=== PATIENT | male | born 1955 | race Caucasian/White ===

== ENCOUNTER 2024-07-25 08:03 | Day surgery (SDC) | payer MEDICARE, OTHER, SELFPAY ==
[2024-07-25] VITALS (19 sets, daily range): BP systolic 94–136; BP diastolic 47–90; BMI 39.2
[2024-07-25] MEDS: LOW STRENGTH ASPIRIN 81 MG PO (09:36)
[2024-07-25 09:41] LABS: Glucose - Point of Care 103 mg/dl (70-99)
[2024-07-25] MEDS: NSS 351 ML IV (09:46)
--- NOTE | 2024-07-25 12:06 | PTCARENOTE ---
1123: CT PA at bedside to speak with patient; son at bedside Pt corie all well.
1157: 2ml air removed from R radial band. Puncture site began bleedin and 2ml air immediately replaced. bleeding controlled. pt corie all well.
--- NOTE | 2024-07-25 14:52 | ITS.CL.CATH ---
Addendum entered and electronically signed by Marcus Mckeon MD 07/25/24 16:02:
Date of procedure: July 25, 2024
Original Note:
[facility] Coordinator - Catheterization
Cardiac Catheterization
Procedure Report:
LEFT HEART CATHETERIZATION
Date of Procedure: July
Procedures performed:
1: Coronary angiography
2: Left ventricular hemodynamic assessment
Primary Care Physician: JORDAN Gilbert
Primary Acquisitions Assistant: Dr. Anatoliy Mishra
INDICATION: The patient is a 68-year-old man with a past medical history significant for diabetes, hypertension hyperlipidemia who presents with progressive exertional angina. Echocardiography performed on July 10 showed normal LV systolic
function with moderate aortic stenosis and mild aortic regurgitation. The mean gradient was 33 mmHg across the aortic valve with a valve area by continuity equation of 1.1 cm�. Nuclear perfusion imaging was high risk with anterior and inferior
ischemia.
ACCESS: The patient was prepped and draped in usual sterile fashion. A 6 Martiniquais sheath was placed in the right radial artery using the Seldinger over the wire technique.
HEMODYNAMIC FINDINGS (mmHg):
LV(s/d,EDP): 157/12, 19
Ao(s/d,m): 127/60, 88
Aortic valve on pullback mean gradient: 30 mmHg
Aortic valve on pullback peak to peak gradient: 33 mmHg
ANGIOGRAPHIC FINDINGS:
Single-plane Left Ventriculography in GARIBAY Projection: Not done
Coronary Angiography:
Dominance: Right
Left Main: Normal
Left Anterior Descending: The left anterior descending artery is a medium to large caliber vessel that has moderate calcification with diffuse 50% proximal stenosis involving the takeoff of a high first diagonal branch that has moderate ostial
disease with normal distal flow and appears to be a reasonable surgical target. Just beyond this the LAD tapers to a 80% stenosis just before the takeoff of a large second diagonal branch. The mid and distal LAD has moderate luminal irregularities
but appears to be a reasonable surgical target. The second diagonal branch is a large-caliber vessel that is a good surgical target.
Left Circumflex: The left circumflex is a very small diminutive system that gives rise to a tiny diffusely diseased obtuse marginal branch. Although there is normal distal flow this is too small caliber and diseased to be treated with
revascularization.
Right Coronary: The right coronary artery is a medium caliber dominant vessel that is diffusely diseased throughout the AV groove with a long area of diffuse 30 to 60% proximal disease. The distal vessel gives rise to a small caliber dual PDA
system that has moderate mid disease in the larger of the 2 branches. There is a small to medium caliber right posterior left ventricular branch that is open with moderate disease and normal flow.
Fluoroscopy Time (min): 2.9
Radiation Dose (mGy): 439
DAP (Gy.cm2): 28
Closure device: None. A TR band was applied for hemostasis at the right wrist.
Complications: None.
ASSESSMENT:
1: Multivessel coronary disease involving the LAD and major diagonal branch as described above.
2: Moderate aortic stenosis.
CONCLUSIONS and RECOMMENDATIONS:
1: CT surgical evaluation for CABG and bioprosthetic AVR. I feel that surgical revascularization with definitive treatment of his aortic valve disease is the wisest option in this 68-year-old diabetic. It is not clear to me that the first diagonal
and distal RCA need grafts however I will discuss this with Dr. Addi Cerda from CT surgery who will be seeing the patient.
2: Continue medical therapy with close clinical follow-up.
Marcus Mckeon M.D.
Copy to: JORDAN Gilbert
== END 2024-07-25 15:20 | disposition home or self-care (01) ==
LOC: CATH 08:03
PROVIDERS: ATTENDING PHYSICIAN Internal Medicine Interventional Cardiology; CONSULT PHYSICIAN Thoracic Surgery (Cardiothoracic Vascular Surgery); PRIMARYCARE PHYSICIAN Nurse Practitioner; REFERRING PHYSICIAN Internal Medicine
DX: I25.118 Atherosclerotic heart disease of native coronary artery with other forms of angina pectoris (principal); I35.0 Nonrheumatic aortic (valve) stenosis; I10 Essential (primary) hypertension; E78.5 Hyperlipidemia, unspecified; E11.9 Type 2 diabetes mellitus without complications; Z87.891 Personal history of nicotine dependence; Z79.84 Long term (current) use of oral hypoglycemic drugs; Z79.4 Long term (current) use of insulin; Z79.85 Long-term (current) use of injectable non-insulin antidiabetic drugs; Z79.82 Long term (current) use of aspirin
CPT/HCPCS: 82962; 93458; C1894; Q9967

== ENCOUNTER → 2024-08-22 09:05 | Outpatient (REF) | payer MEDICARE, OTHER, SELFPAY | LOC: RAD 09:05 | PROVIDERS: ATTENDING PHYSICIAN Thoracic Surgery (Cardiothoracic Vascular Surgery); FAMILY PHYSICIAN Nurse Practitioner Acute Care | DX: Z01.810 Encounter for preprocedural cardiovascular examination (principal); I35.0 Nonrheumatic aortic (valve) stenosis; I25.10 Atherosclerotic heart disease of native coronary artery without angina pectoris | CPT/HCPCS: 75572; Q9967 ==

== ENCOUNTER 2024-08-29 04:40 | Inpatient (IN) | payer MEDICARE, OTHER, SELFPAY ==
[2024-08-24 08:08] VITALS: BMI 37.8
[2024-08-24 08:53] LABS: % Basophils 0.9 % (0-2); % Eosinophils 6.8 % (0-6); % Immature Granulocytes 0.2 % (0-0.5); % Lymphocytes 22.6 % (20.5-51.1); % Monocytes 9.6 % (1.7-9.3); % Neutrophils 59.9 % (42.2-75.2); Absolute Basophils 0.1 10^3/uL (0-0.2); Absolute Eosinophils 0.7 10^3/uL (0-0.7); Absolute Lymphocytes 2.4 10^3/uL (1.2-3.4); Absolute Neutrophils 6.4 10^3/uL (1.4-6.5); Hematocrit 42.3 % (39.0-52.0); Hemoglobin 13.7 g/dL (13.0-18.0); Mean Corp Hgb Conc. 32.4 g/dL (33.0-37.0); Mean Corpuscular Hgb 29.3 pg (27.0-31.0); Mean Corpuscular Volume 90.6 fL (80.0-94.0); Mean Platelet Volume 8.6 fL (7.4-10.4); Nucleated Red Blood Cells % 0 % (-); Platelet Count 292 10^3/uL (130-400); Red Blood Cell Count 4.67 10^6/uL (4.70-6.10); Red Cell Dist. Width 12.7 % (11.5-14.5); White Blood Cell Count 10.7 10^3/uL (4.8-10.8)
[2024-08-24 09:02] LABS: INR 1.04; PT 13.9 Sec (11.4-14.6)
[2024-08-24 09:03] LABS: APTT 28.4 Sec (23.4-35.0)
[2024-08-24 09:14] LABS: ALT (SGPT) 30 U/L (0-50); AST (SGOT) 25 U/L (17-59); Albumin 4.3 g/dl (3.5-5.0); Alkaline Phosphatase 73 U/L (38-126); Blood Urea Nitrogen 19 mg/dl (9-20); Calcium 8.9 mg/dl (8.4-10.2); Carbon Dioxide 32 mmol/L (22-30); Chloride 101 mmol/L (98-107); Estimated Creatinine Clearance 111 ml/min; Glucose 82 mg/dl (70-99); Potassium 5.2 mmol/L (3.5-5.1); Sodium 140 mmol/L (135-145); Total Bilirubin 0.7 mg/dl (0.2-1.3); Total Protein 7.1 g/dl (6.3-8.2); eGFR > 60.00
[2024-08-24 09:17] LABS: Urine Albumin Negative (Neg - Trace); Urine Bilirubin Negative (Negative); Urine Character Clear (Clear); Urine Color Yellow; Urine Glucose Negative (Negative); Urine Ketone Negative (Negative); Urine Leukocyte Negative (Negative); Urine Nitrite Negative (Negative); Urine Occult Blood Negative (Negative); Urine Urobilinogen Negative (Neg - 1+)
--- NOTE | 2024-08-24 11:03 | CM ---
Met with and Mrs. Welsh in [facility]'s. He states prior to admission he resides with his spouse. He states he offered him his one story home with one step to stay in for his recovery. The address is [address] [place] [address]. He states
prior to admission he was independent with ambulation and adls. He stats he has a walker and bedside commode at home. He states the house he will be staying in has an easy lift chair. He states his 30 year old son will be staying with him. He
states he has a prescription plan and uses [facility]. We reviewed VNA services with them. He is agreeable to VNA Services. [facility] can provide services in the [facility]. The discharge plan is to go jourdan with his son and
[facility] Services when medically stable.
We reviewed pre-op and post-op routines. We reviewed the shower instructions. He has the soap, written instructions and the Cardiothoracic Surgery Educational Booklet. We also reviewed the restrictions including sternal precautions and driving
restrictions. We reviewed VNA Services and he is agreeable to VNA Services. The plan is for AVR/CABG on Tuesday08/29/24.
[2024-08-24 12:14] LABS: Glycohemoglobin (HgbA1c) 6.4 % (4.0-5.6)
[2024-08-29] VITALS (11 sets, daily range): BP systolic 75–149; BP diastolic 50–92; BMI 36.2
--- NOTE | 2024-08-29 05:00 | PTCARENOTE ---
pt admitted into room 2260. VS and weight obtained. pt confirms 2 showers @ home and NPO since midnight. admission questions and med rec completed. clip prep and CHG cloth bath done. ABO drawn and sent. ordered pre-op meds given. all questions
answered.
[2024-08-29] MEDS: BACTROBAN 2% OINTMENT 1 APPLIC NASAL ×2 (06:09→17:03)
[2024-08-29] MEDS: LOPRESSOR 25 MG PO (06:09)
[2024-08-29] MEDS: PROTONIX 40 MG PO (06:10)
[2024-08-29] MEDS: MAGNESIUM OXIDE 500 MG PO (06:10)
--- NOTE | 2024-08-29 06:27 | W.CVOR.SURPR ---
CVOR Surgeon Immed Pre Op
-
I have examined this patient prior to performance of the scheduled procedure.
The patient's condition is unchanged from the time of the dictated/written History and
Physical and the patient is able to undergo the scheduled procedure.
CABG AVR Clip
[2024-08-29 07:32] LABS: ACT+ - POC 118 Seconds (82-134)
[2024-08-29 08:03] LABS: Urine Albumin Trace (Neg - Trace); Urine Bilirubin Negative (Negative); Urine Character Clear (Clear); Urine Color Yellow; Urine Glucose Negative (Negative); Urine Ketone Trace (Negative); Urine Leukocyte Negative (Negative); Urine Nitrite Negative (Negative); Urine Occult Blood Negative (Negative); Urine Urobilinogen Negative (Neg - 1+)
--- NOTE | 2024-08-29 08:14 | CM ---
Reviewed chart. Mr. Welsh is in the operating room today. Prior to admission he resides with his spouse. His friend has offered his one story home to stey in for his recovery. Prior to admission he was independent with ambulation and adls. He has
a walker and bedside commode. The home where he will be staying has an easy lift chair. His 30 year old son will be staying with him. He has a prescription plan and uses [facility] He is agreeable to [facility] Services. [facility]. Medical work-up in progress. The discharge plan is to go to his friends home with his son satying wih him and [facility] when medically stable.
[2024-08-29 09:38] LABS: ACT+ - POC 629 Seconds (82-134)
[2024-08-29 09:58] LABS: B.E. - POC 0.9 mmol/L; Glucose - POC 77 mg/dl (70-99); HCO3 - POC 27 mmol/L (21-28); Hematocrit - POC 40 % PCV (42-52); Hemodilution- POC No; Hemoglobin Calculated - POC 13.7; Ionized Calcium - POC 1.18 mmol/L (1.15-1.33); O2 Saturation %Calculated-POC 97.6 % (94-98); PCO2 - POC 47 mmHg (35-48); PO2 - POC 102 mmHg (83-108); POC Comment PRE; Potassium - POC 4.1 mmol/L (3.5-5.1); Sodium - POC 141 mmol/L (136-145); Specimen Type - POC Arterial; pH - POC 7.36 (7.35-7.45)
[2024-08-29 10:07] LABS: B.E. - POC 2.5 mmol/L; Glucose - POC 87 mg/dl (70-99); HCO3 - POC 26 mmol/L (21-28); Hematocrit - POC 34 % PCV (42-52); Hemodilution- POC Yes; Hemoglobin Calculated - POC 11.5; Ionized Calcium - POC 0.92 mmol/L (1.15-1.33); Lactate - POC 1.19 mmol/L (0.36-0.75); O2 Saturation %Calculated-POC 99.9 % (94-98); PCO2 - POC 36 mmHg (35-48); PO2 - POC 306 mmHg (83-108); POC Comment CPB; Potassium - POC 5.5 mmol/L (3.5-5.1); Sodium - POC 133 mmol/L (136-145); Specimen Type - POC Arterial; pH - POC 7.47 (7.35-7.45)
[2024-08-29 10:13] LABS: ACT+ - POC 621 Seconds (82-134)
[2024-08-29 10:35] LABS: B.E. - POC 4.2 mmol/L; Glucose - POC 94 mg/dl (70-99); HCO3 - POC 28 mmol/L (21-28); Hematocrit - POC 36 % PCV (42-52); Hemodilution- POC Yes; Hemoglobin Calculated - POC 12.1; O2 Saturation %Calculated-POC 99.9 % (94-98); PCO2 - POC 40 mmHg (35-48); PO2 - POC 333 mmHg (83-108); POC Comment CPB; Potassium - POC 5.8 mmol/L (3.5-5.1); Sodium - POC 137 mmol/L (136-145); Specimen Type - POC Arterial; pH - POC 7.46 (7.35-7.45)
[2024-08-29 10:46] LABS: ACT+ - POC 545 Seconds (82-134)
[2024-08-29 10:59] LABS: B.E. - POC 2.7 mmol/L; Glucose - POC 115 mg/dl (70-99); HCO3 - POC 28 mmol/L (21-28); Hematocrit - POC 34 % PCV (42-52); Hemodilution- POC Yes; Hemoglobin Calculated - POC 11.7; Ionized Calcium - POC 1.04 mmol/L (1.15-1.33); O2 Saturation %Calculated-POC 99.9 % (94-98); PCO2 - POC 47 mmHg (35-48); PO2 - POC 319 mmHg (83-108); POC Comment CPB; Potassium - POC 6.4 mmol/L (3.5-5.1); Sodium - POC 137 mmol/L (136-145); Specimen Type - POC Arterial; pH - POC 7.39 (7.35-7.45)
[2024-08-29 11:39] LABS: ACT+ - POC 546 Seconds (82-134)
[2024-08-29 11:48] LABS: B.E. - POC 1.5 mmol/L; Glucose - POC 126 mg/dl (70-99); HCO3 - POC 27 mmol/L (21-28); Hematocrit - POC 36 % PCV (42-52); Hemodilution- POC Yes; Hemoglobin Calculated - POC 12.3; Ionized Calcium - POC 1.07 mmol/L (1.15-1.33); Lactate - POC 1.49 mmol/L (0.36-0.75); O2 Saturation %Calculated-POC 99.9 % (94-98); PCO2 - POC 45 mmHg (35-48); PO2 - POC 283 mmHg (83-108); Potassium - POC 5.9 mmol/L (3.5-5.1); Sodium - POC 136 mmol/L (136-145); Specimen Type - POC Arterial; pH - POC 7.39 (7.35-7.45)
[2024-08-29] MEDS: ANCEF 10 IV ×2 (11:55→14:42)
[2024-08-29 12:02] LABS: B.E. - POC 1.2 mmol/L; Glucose - POC 123 mg/dl (70-99); HCO3 - POC 27 mmol/L (21-28); Hematocrit - POC 36 % PCV (42-52); Hemodilution- POC Yes; Hemoglobin Calculated - POC 12.4; Ionized Calcium - POC 1.07 mmol/L (1.15-1.33); O2 Saturation %Calculated-POC 99.9 % (94-98); PCO2 - POC 44 mmHg (35-48); PO2 - POC 332 mmHg (83-108); POC Comment CPB; Potassium - POC 6.2 mmol/L (3.5-5.1); Sodium - POC 138 mmol/L (136-145); Specimen Type - POC Arterial; pH - POC 7.39 (7.35-7.45)
[2024-08-29 12:33] LABS: B.E. - POC -1.1 mmol/L; Glucose - POC 107 mg/dl (70-99); HCO3 - POC 24 mmol/L (21-28); Hematocrit - POC 33 % PCV (42-52); Hemodilution- POC Yes; Hemoglobin Calculated - POC 11.2; Ionized Calcium - POC 1.25 mmol/L (1.15-1.33); PCO2 - POC 43 mmHg (35-48); PO2 - POC 448 mmHg (83-108); POC Comment POST; Sodium - POC 142 mmol/L (136-145); Specimen Type - POC Arterial; pH - POC 7.36 (7.35-7.45)
--- NOTE | 2024-08-29 12:46 | PTCARENOTE ---
received patient sedated from CVOR. placed on vent by BEAUTY OPERATOR. Out with usual lines, CTx3 (placed to -20 wall suction) draining red. no air leaks/crepitus noted. #8 ETT @23 lip. lungs diminished at bases. manning draining clear yellow urine. pulses
palpable. trace edema. ekg and cxr done at bedside. Labs drawn and sent and all lines zeroed and calibrated. insulin per glycemic protocol infusing as well as precedex and levo. All surgical sites stable. Will continue to monitor.
--- NOTE | 2024-08-29 12:51 | W.PN.CT.SURG ---
CT Surgery Operative Note
-
CARDIAC SURGERY OPERATIVE REPORT
Preoperative Diagnosis: Aortic valve stenosis with multivessel coronary artery disease and exertional angina
Postoperative Diagnosis: Same
Procedure(s) Performed:
1. Sternotomy with aortic and right atrial cannulation
2. Coronary artery bypass grafting x 4 (In situ GARZA to LAD, Ao to RSVG to D1 seq to D2, Ao to RSVG to RPDA)
3. Surgical aortic valve replacement [27 mm bioprosthesis]
4. Left atrial appendage exclusion [35 mm clip]
5. Endoscopic harvest of conduit, right lower extremity [vein]
6. Placement temporary ventricular pacing wires
7. Trans-esophageal echocardiography
8. Regional block from anesthesia
Date of Surgery: 08/29/2024
Comorbidities:
1. Exertional angina
2. Diabetes
3. Multivessel coronary disease
4. Moderately severe aortic valve stenosis
5. Morbidly obese with a BMI of 36
6. Tobacco abuse
7. Family history for cardiovascular disease
8. Hypertension
9. Hyperlipidemia
Attending Surgeon: Roberto Carlos Cerda MD, MS
Assistants: Roberto Carlos Mcbride PA-C (present and necessary to medical office assistant, endoscopic vein harvest, retraction, suction, exposure, suture management, and wound closure under my direction)
Anesthesiology: Jabari Ortega MD and Fitz Ayala CRNA
Scrub and Circulating RNs: Yoon Knight RN, Nely Dennis RN
Generator Operator Straight Bevel Gear: Santos Galaviz CCP
Anesthesia: GETA
EBL: per perfusion records
Products: None
CPB Time: 128 minutes
Aortic Cross Clamp Time: 117 minutes
Indication(s) for Procedures: This is a 68-year-old male who had been experiencing exertional angina in the form of shortness of breath. He was found to have multivessel coronary artery disease as well as moderately severe aortic valve stenosis.
We discussed surgical revascularization with can, aortic valve surgery given it was a 2A indication. His chads Vascor was elevated at 3 and so because of this I plan to manage his left atrial appendage at time of surgery. His STS risk was reviewed
in the office plan was for CABG x 3-4+ AVR plus JUSTEN clip.
Aortic Valve Description: Heavily calcified mostly towards the right and on coronary cusp, the left was also involved but not as badly, left and right coronary ostium within normal anatomic positions and high.
Conduit(s) Quality:
GARZA -skeletonized/excellent size conduit with good flow
RSVG -excellent/good quality graft with minimal varicosities, some thickening and evidence of chronic inflammatory disease
Target(s) Quality:
RCA/PDA -this was a dual RPDA system, the most lateral branch was quite small and heavily diseased distally and so it was not grafted, the best of the 2 branches was grafted/good mean flow, flow probe assessment demonstrated a flow of approximately
20 to 25 cc a minute at a low pulsatility index
D1 and D2-excellent size/mean flow of approximately 80 cc a minute at a pressure of 80 mmHg, low pulsatility index these were sequentially grafted and tested individually
LAD -excellent/good quality LAD, good visual flow in the LAD territory with pinking up of the apical and lateral segments, mean flow in the 20s with low pulsatility index
Findings: LVEF on intraoperative SIOBHAN was 60-65% and 60-65% post procedure with no new regional wall motion abnormalities, all grafts were tested using the flow probe device and found to have acceptable mean flows with low pulsatility indices. There
was no prosthetic PVL or AI. Mean gradient across the prosthesis was 6 mmHg. The aortic valve was replaced using a total of 17 nonpledgeted 2 Ethibond sutures placed in the LVOT through annulus through sewing cuff of a 27 mm bioprosthetic valve
secured with core knots. The GARZA was harvested in a skeletonized fashion. Following bypass grafting, test dose cardioplegia was given down each distal and confirmed patency and hemostasis. At the conclusion of the case, he was in a very slow
junctional rhythm, we started to pace him at which point he came back into his ewiiaapaayp sinus rhythm in the 80s. He did not require any blood products, did not require any inotropic support. There was mild left ventricular hypertrophy. The left
atrial appendage was free of any thrombus or debris preoperatively and found to be totally occlusive with no residual flow postoperatively
Specimen(s): Aortic valve leaflets.
Prosthesis:
1. Medtronic 27 mm Avalus Ultra AVR, serial number: [id number]
2. 35 mm left atrial appendage clip, serial #[id number]
Description of Procedure: The patient was taken to the operating room. Their identity and procedure to be performed were verified and they were positioned supine on the operating table. Induction via general anesthesia with endotracheal intubation
was performed and central venous access and arterial monitoring were inserted. A preoperative transesophageal echocardiogram was performed. The patient was then prepped and draped from chin to feet in a sterile fashion. A preoperative time-out was
performed with all members of the team present. A midline chest incision was performed along with median sternotomy. Simultaneous endoscopic access of the right lower extremity for saphenous vein harvest was obtained along with administration of an
initial 5,000 units of IV heparin. A RulTract sternal retractor was positioned to exposure the left internal mammary bed. The mammary was harvested in a skeletonized fashion and found to have good flow. A medium clip was applied to the distal end of
the mammary after dividing it. It was wrapped in a papaverine soaked RayTec and replaced back into the left hemithorax. The RulTract was exchanged for a median sternal retractor. The innominate vein was isolated. Full heparinization was given (a
total of 50,000 units). I created a pericardial well. The aortic cannulation site was chosen where it was soft, pliable, and free of calcium. Cannulation was performed with an arterial cannula in the ascending aorta and a triple-stage venous cannula
through the right atrial appendage. The arterial cannula line had an appropriate bounce and correlating pressures with test dosing. Next, a root vent/antegrade cannula was inserted into the ascending aorta. The ACT was confirmed to be over 400 and
retrograde autologous priming was performed before commencing cardiopulmonary bypass. The pulmonary artery was away from the aorta to facilitate a clamp site. The aortic cross-clamp was placed after decreasing the flow on the bypass and
mean arterial pressure. A total of 1.0L initial dose of antegrade Del-Nido cardioplegia solution was given and planned for re-dosing every 75 minutes as necessary. There was rapid electro-mechanical arrest of the heart at 500 cc of cardioplegia. The
left ventricle was observed for distention on echocardiogram and manual palpation. Cold slush was placed into a sponge and topically on the RV while we systemically cooled to 34 degrees centigrade. Once the heart was fully arrested, it is rotated
medially and the left atrial appendage was managed with a 35 mm device after dividing the ligament of Luis.
Since the heart was already positioned with exposure to the diagonal branches, the D1 diagonal branch was dissected free from the intermuscular course and of the ventricle. Next I identified the D2 branch and dissected in a similar fashion. Both
coronary arteries were opened and enlarged with Vilchis scissors. The vein was beveled accordingly and the D1 end-to-side anastomosis was created with 7-0 Prolene. Test dosing of cardioplegia was given down the graft to verify hemostasis and also
flow and found to be excellent. Next the vein was laid out in order to accommodate a sequential graft to the D2 segment into the aorta. A small venotomy was created on the underbelly of the vein graft and enlarged with Vilchis scissors. A
jrso-we-jpik anastomosis was created with 7-0 Prolene in a running fashion. The distal end of the vein graft was then clamped off with the bulldog clamp and then cardioplegia was again given down the graft to assess flow into the D2 segment and for
hemostasis. Both were found to be excellent. I positioned the heart to expose the distal right coronary at the posterior descending artery. A [place]ma[place]luak blade was used to expose the coronary and perform the arteriotomy. Coronary Vilchis scissors were
used to enlarge the incision. The saphenous vein was trimmed and beveled to an appropriate size. The distal anastomosis was performed using 7-0 prolene in an end-to-side fashion. Antegrade cardioplegia was administered into the graft. Appropriate
hemostasis and flow were confirmed. The graft was measured for length to the aorta and cut. A suitable target on the mid/distal left anterior descending was identified. We dissected and prepared the distal target in a similar fashion. We retrieved
the GARZA from the chest and created a pericardial opening while being cognizant of the phrenic nerve to facilitate the course of the mammary. The distal end of the mammary was prepped and beveled to size. We verified orientation and length of the
MAX and found brisk flow. An end-to-side anastomosis was created with a 7-0 prolene. We temporarily released the bulldog clamp on the mammary to inspect flow. Perfusion to the LAD territory was visualized and hemostasis was confirmed. The bull clamp
was replaced on the mammary. Additional cardioplegia was given down the vein grafts as part of the testing as well as to redosed mid case.
Carbon dioxide was used to flood the field. I turned my attention to the aortic valve and manually identified the location of the right coronary take off. An aortotomy was made approximately 1.5cm above the sinotubular junction. The location of both
left and right coronary vessels were visualized in the root. The aortic valve was inspected and found to be heavily calcified. The leaflets were excised and sent for pathological assessment. The annulus was debrided of any calcium. The root and left
ventricular outflow tract were thoroughly irrigated to remove any debris. A total of 17, non-pledgeted 2-0 ethibond annular sutures were placed [id number] circumferentially. These were brought through the sewing cuff of the prosthetic valve which
as then parachuted into place. The left and right coronary ostia were visualized and were unobstructed by the valve. A Cor-Knot device was used to secure the annular sutures. The valve was inspected and was well seated. The aortotomy was
approximated with 4-0 prolene in two layers. The heart was filled and the root was distended with antegrade cardioplegia to make final assessment of graft length and orientation. I created 2 aortotomies using a #11 blade then a 4.0mm aortic punch
above the aortic suture line. The proximal anastomoses were created in an end-to-side fashion using 6-0 prolene. At the same time, we started to re-warm to 36.5 degrees centigrade. The bulldog clamp was removed from the mammary and temporary bipolar
ventricular pacing wires were placed on the base of the right ventricle. The patient was placed in a Trendelenburg position and flows on bypass were lowered. The aortic cross clamp was removed and flows were slowly brought back up. The aortotomy
appeared hemostatic. A 30-gauge needle was used to de-air the vein grafts. All bypass grafts were inspected and were free from kinking or twisting. The distal and proximal anastomoses appeared hemostatic. De-airing maneuvers were performed.
Transesophageal echocardiography revealed no paravalvular leak and appropriate prosthetic function. Once de-airing was satisfactory, the left ventricular and root vents were removed. After verifying acceptable parameters, we initiated weaning from
cardiopulmonary bypass. Once we were off cardiopulmonary bypass, the venous cannulas was clamped and removed. A test dose of protamine was administered and the patient was monitored for any adverse reaction before resuming protamine. Once half of
the protamine dose was delivered, pump suckers were turned off and the systolic blood pressure was lowered for aortic decannulation. The aortic cannula was removed and pursestrings were tied down. All cannulation sites were oversewn with a 4-0
prolene. The aortic line, proximal, and distal coronary anastomoses were hemostatic. The mammary bed was inspected and hemostasis was confirmed. Once the mediastinum was hemostatic, a 19Fr Kei drain was placed in the left pleural cavity and two
24Fr Kei drains were placed within the pericardium. Because he had a very prominent xiphoid, it would place too much pressure on the skin and fascial incision, and so this was removed. The sternum was approximated with 4#7 single and 3 #8 double
stainless steel wires. Fascia was approximated with #1 vicryl suture. The subcutaneous, dermis and epidermis were closed in layers in a running fashion. The skin wound was cleansed and dressed.
All instrument, sponge, and needle counts were confirmed to be correct x 2 at the end of the operation. The patient was transferred to the cardiac intensive care unit in critical but stable condition.
I, Dr. Roberto Carlos Cerda, was present, scrubbed for, and performed all critical elements of this procedure.
Roberto Carlos Cerda MD, MS
Cardiothoracic Surgeon
[facility]
This operative dictation was created using the enrich-in dictation system. Please excuse any grammatical, typographical, or 'sound alike' errors
--- NOTE | 2024-08-29 13:04 | W.PN.UPDATE ---
Update Note
Progress Note Update
68-year-old male was electively admitted for AVR and CABG due to nonrheumatic aortic stenosis and two-vessel coronary disease
IV fluids: 1200
U.O.:� 600
Blood:� none
Wires:� bipolar V-wire
Gtts: Cardene, Levo, Precedex, Insulin
�
NEURO: sedated on Precedex, pupils +2mm B/L
RESP: #8OT @24cm> 500/40%/14/5. Lungs clear B/L. 2 mediastinal (0cc on arrival) and L pleural (0cc on arrival) chest tubes to -20cm suction. Sanguineous drainage
CV: RRR +S1, S2, no S3, no�rub, no murmur. Dermabond to median sternotomy. RIJ w/Jbphh locked @ 47cm. PA 34/21; CVP 17
ABD: obese, ound, soft, no BS
EXT: no edema, +2/4 DP pulses B/L, no femoral bruit, LLE NICKI wrap intact; left radial A-line intact
: Harper with clear yellow urine
�
A/P: POD #0 s/p x CABG x 4 (GARZA to LAD, Ao to RSVG to D1 seq to D2, Ao to RSVG to RPDA), aortic valve replacement [#27 mm bioprosthesis], left atrial appendage exclusion [#35 mm clip]
SIOBHAN: EF�
- wean and extubate
- will need instruction regarding antibiotic prophylaxis for dental and invasive procedures
#CAD
-will require ASA/Plavix, high intensity statin, beta sydni
�
# acute surgical blood loss anemia-expected
- trend CBC
# T2DM (A1C 6.4)
- insulin infusion x 48h
- resume lantus/metformin + ACEi as BP tolerates
# Hypothyroidism
- resume levothyroxine when tolerating solids
�
# Hx neuropathy with history of back surgery
- resume�home gabapentin 300 mg twice daily +600 mg at bedtime
[2024-08-29 13:13] LABS: Glucose - Point of Care 104 mg/dl (70-99)
[2024-08-29 13:26] LABS: Hematocrit 33.5 % (39.0-52.0); Hemoglobin 11.7 g/dL (13.0-18.0); Platelet Count 184 10^3/uL (130-400)
--- NOTE | 2024-08-29 13:28 | CON.INTV ---
Consultation
Consultation Request
Date/Time Consultation Requested: 08/29/2024-1:30 PM
Date/Time Consultation Performed: 08/29/2024-1:30 PM
Requesting Provider: Cardiovascular surgery
Performing Provider: Dr. Galvan
Reason for Consultation: Postoperative ventilator/critical care management
Medical History
-
Chief Complaint: CAD
History of Present Illness:
68-year-old obese former smoking male who quit in 2010 with underlying hypertension, hyperlipidemia and diabetes found to have significant multivessel CAD and underwent CABG-production team manager consulted for postoperative ventilator/critical care management
08/29/2024. Patient is intubated and seen postoperatively in the cardiovascular intensive care unit and review of systems was unobtainable. Operative records were reviewed, chest tube output and catheter parameters were reviewed in addition to
pressor requirements.
Past Medical History
Past Medical History: None (Hypertension. Hyperlipidemia. CAD/multivessel CAD-CABG 08/29/2024. Obesity. Diabetes. Hernia.)
Social History
Tobacco: Former Smoker (1 pack/day-quit 2010)
Alcohol: None
Drug: None
Personal:
Living: With Family
Occupational Exposures: No known asbestos exposure
Environmental Exposures: No known tuberculosis exposure
Family History
Family History: Other (Father-CAD. Mother-CAD. Child-epilepsy. 1 sister from cancer.)
Allergies / Home Medications
Allergies
Allergy/AdvReac Type Severity Reaction Status Date / Time
No Known Allergies Allergy Verified 08/29/24 04:54
Home Medications
�Medication �Instructions �Recorded �Confirmed �Last Taken �Type
albuterol sulfate 90 mcg/actuation 2 puff inhalation Q6H PRN 07/25/24 08/29/24 02/13/24 History
aerosol inhaler dyspnea/wheezing
aspirin 81 mg chewable tablet 81 mg PO DAILY 07/25/24 08/29/24 08/28/24 09:00 History
atorvastatin 80 mg tablet 80 mg PO HS 07/25/24 08/29/24 08/28/24 21:00 History
gabapentin 300 mg capsule 300 mg PO BID@0800,1200 07/25/24 08/29/24 08/28/24 12:00 History
gabapentin 600 mg tablet 600 mg PO HS 07/25/24 08/29/24 08/28/24 21:00 History
insulin glargine 100 unit/mL (3 41 unit SC HS 07/25/24 08/29/24 08/28/24 21:00 History
mL) subcutaneous pen (Lantus
Solostar U-100 Insulin)
isosorbide mononitrate 60 mg 60 mg PO HS 07/25/24 08/29/24 08/23/24 21:00 History
tablet,extended release 24 hr
levothyroxine 100 mcg capsule 100 mcg PO HS 07/25/24 08/29/24 08/28/24 21:00 History
lisinopril 10 mg tablet 10 mg PO HS 07/25/24 08/29/24 08/23/24 21:00 History
metformin 1,000 mg tablet 1,000 mg PO BID 07/25/24 08/29/24 08/28/24 21:00 History
metoprolol succinate 100 mg 100 mg PO HS 07/25/24 08/29/24 07/24/24 22:00 History
tablet,extended release 24 hr
nitroglycerin 0.4 mg sublingual 0.4 mg sublingual Q5M PRN chest 07/25/24 08/29/24 08/23/24 History
tablet (Nitrostat) pain
prednisone 1 mg tablet 1 mg PO HS 07/25/24 08/29/24 08/23/24 21:00 History
semaglutide 2 mg/dose (8 mg/3 mL) 1 mg SC QWEEK 07/25/24 08/29/24 08/14/24 History
subcutaneous pen injector
Review of Systems
-
Unable to Obtain full review of systems at this time due to: Other (Per HPI)
Vitals / Labs / Diagnostic Testing
Vital Signs
Temp Pulse Resp BP Pulse Ox
96.8 F L 73 17 149/68 99
08/29/24 13:00 08/29/24 06:09 08/29/24 04:52 08/29/24 06:09 08/29/24 04:52
Diagnostic Testing:
Physical Exam
-
Exam:
Well-nourished and well-developed in no apparent distress
HEENT-atraumatic, normocephalic, oral tracheal intubation
Heart-regular rate and rhythm-no murmurs, rubs or gallops
Chest-clear to auscultation, no wheezes, crackles, median sternotomy bandage is not removed
Abdomen soft nondistended
Extremities-no cyanosis, clubbing, edema and good peripheral pulses
Integument-intact, no rashes, lesions or ecchymosis
Neurologically not alert, not oriented, not moving any of his extremities sedated on a ventilator
Assessment
-
68-year-old obese former smoking male who quit in 2010 with underlying hypertension, hyperlipidemia and diabetes found to have significant multivessel CAD and underwent CABG-production team manager consulted for postoperative ventilator/critical care management
08/29/2024.
Multivessel CAD with preoperative preserved EF
Status post CABG x 4-GARZA-LAD, AO to RSVG to D1 sequential to D2, AO to RSVG to RPDA, aortic valve replacement 27 mm bioprosthetic-Dr. Cerda 08/29/2024
Mild anemia-hemoglobin 11.7
Conditions present prior to admission:
Hypertension.
Hyperlipidemia.
CAD/multivessel-CABG/AVR 08/29/2024.
Obesity.
Diabetes.
Hernia.
Plan
Ventilator settings reviewed
FiO2 will be weaned
Minute ventilation will be adjusted
Arterial blood gases will be monitored
Spontaneous breathing trial will be attempted with hopeful extubation after anesthesia/sedation wear off
Pulmonary artery catheter parameters will be followed
Pressors/antihypertensive/inotropes/diuretics will be provided as needed
Monitor chest tube output
Monitor hemoglobin
Monitor platelet count and coags
Transfuse blood product if needed
CT surgery following chest tubes
Monitor blood sugar
Insulin drip per protocol
Aspiration precautions
VAP prevention protocol
DVT prophylaxis
Early nutrition
Early mobilization
Patient at significant risk for obstructive sleep apnea-recommend outpatient sleep [id number] leave instructions
Critical care statement: A total of 55 minutes of critical care time was provided for this patient today. This includes management of ventilator, spontaneous breathing trial, arterial blood gases, pressors, of unstable vital signs, evaluation of the
patient at bedside, reviewing the patient's pertinent medical records including radiographs, microbiology, laboratory evaluations, and discussion with primary team and critical care nursing.
Diagnostic data:
Chest x-ray 08/29/2024-ET tube and pulmonary artery catheter in position, low lung volumes
CT chest 08/22/2024-dense aortic calcification, mild bronchial wall thickening suggesting bronchitis, basilar atelectasis
Cardiac catheterization 07/25/2024-multivessel CAD and moderate aortic stenosis
Data Reviewed
-
EKG: Report reviewed by me
Radiology: Image personally visualized and interpreted and Report reviewed by me
CT Scan: Report reviewed by me
Medical Tests (Nuc Med, Echo etc): Report reviewed by me
Labs: Labs reviewed by me
Old Records: Reviewed
Critical Care Time (in minutes): 55
[2024-08-29 13:30] LABS: B.E. -1.4 mmol/L; HCO3 24.3 mmol/L (21-28); Ionized Calcium 1.18 mMOL/L (1.15-1.33); O2 Saturation % 99.1 % (94-98); PCO2 44 mmHg (35-48); PO2 156 mmHg (83-108); Potassium 4.5 mMOL/L (3.5-5.1); Sodium 135 mMOL/L (136-145); pH 7.35 (7.35-7.45)
[2024-08-29 13:31] LABS: PT 17.7 Sec (11.4-14.6)
[2024-08-29 13:32] LABS: APTT 33.3 Sec (23.4-35.0); Mixed Venous O2 Saturation 72.5 %
[2024-08-29 13:45] LABS: Blood Urea Nitrogen 19 mg/dl (9-20); Estimated Creatinine Clearance 124 ml/min; Glucose 107 mg/dl (70-99); Magnesium 2.5 mg/dl (1.6-2.3)
--- NOTE | 2024-08-29 14:16 | W.PN.CARDCBS ---
Addendum entered and electronically signed by Dakota Dowell MD 08/29/24 15:18:
patient seen and examined
agree with NANETTE Marlow's notes and assessment
agree with NANETTE Marlow's plan
intubated and sedated in the ICU
s/p AVR/CABG/JUSTEN clip POD#0
exam:
intubated
sedated
sternum cdi
cor regular no m
lungs diminished but clear
abd soft nt nd
no ext edema
Assessment:
s/p CABG x4 In situ GARZA to LAD, Ao to RSVG to D1 seq to D2, Ao to RSVG to RPDA, bioprosthetic AVR, JUSTEN clip 08/29/24
MV CAD by cath
Mod
Chronic RBBB
DM2
HTN
HLD
Obesity
Tobacco use
ECHO 07/10/24: Normal LV systolic function, moderate , mild AR with mean gradient 33 mmHg, EBONY 1.1 cm�
Plan:
-s/p CABG x4 In situ GARZA to LAD, Ao to RSVG to D1 seq to D2, Ao to RSVG to RPDA, bioprosthetic AVR, JUSTEN clip 08/29/24
-intubated, sedated
-off pressors. CI 1.74
-post op EKG SR with RBBB, stable
-hgb 11.7
-Preop was on regimen of Toprol 100 mg nightly, lisinopril 10 mg nightly, Imdur 60 mg nightly.
-continue usual post op care
-d/w nursing
-appreciate excellent surgical care
Original Note:
Today's Communication / Plan
-
continue post op care
Impression / Plan
-
Primary Wrapper Operator: Dr. Mishra of [facility]
Assessment:
s/p CABG x4 In situ GARZA to LAD, Ao to RSVG to D1 seq to D2, Ao to RSVG to RPDA, bioprosthetic AVR, JUSTEN clip 08/29/24
MV CAD by cath
Mod
Chronic RBBB
DM2
HTN
HLD
Obesity
Tobacco use
ECHO 07/10/24: Normal LV systolic function, moderate , mild AR with mean gradient 33 mmHg, EBONY 1.1 cm�
Plan:
-s/p CABG x4 In situ GARZA to LAD, Ao to RSVG to D1 seq to D2, Ao to RSVG to RPDA, bioprosthetic AVR, JUSTEN clip 08/29/24
-intubated, sedated
-off pressors. CI 1.74
-post op EKG SR with RBBB
-hgb 11.7
-Preop was on regimen of Toprol 100 mg nightly, lisinopril 10 mg nightly, Imdur 60 mg nightly.
-continue post op care
-d/w nursing
Progress Note - Wrapper Operator
Subjective
Date of Service: August 29, 2024
intubated, sedated
Objective
Labs:
08/29/24 13:04
Labs
Hgb 11.7 g/dL (13.0-18.0) L 08/29/24 13:04
Hct 33.5 % (39.0-52.0) L 08/29/24 13:04
Plt Count 184 10^3/uL (130-400) D 08/29/24 13:04
PT 17.7 Sec (11.4-14.6) H 08/29/24 13:04
INR 1.40 08/29/24 13:04
APTT 33.3 Sec (23.4-35.0) 08/29/24 13:04
Sodium 140 mmol/L (135-145) 08/24/24 08:17
Potassium 5.2 mmol/L (3.5-5.1) H 08/24/24 08:17
BUN 19 mg/dl (9-20) 08/29/24 13:04
Creatinine 0.7 mg/dL (0.7-1.3) 08/29/24 13:04
Glucose 107 mg/dl (70-99) H 08/29/24 13:04
Vital Signs and I&O:
Vital Signs
Temp Pulse Resp BP Pulse Ox
96.8 F L 86 14 149/68 94
08/29/24 13:00 08/29/24 13:45 08/29/24 13:45 08/29/24 06:09 08/29/24 14:05
Vital Signs
Temp Pulse Resp BP Pulse Ox
96.8 F L 86 14 149/68 94
08/29/24 13:00 08/29/24 13:45 08/29/24 13:45 08/29/24 06:09 08/29/24 14:05
Intake & Output
08/27/24 08/28/24 08/29/24 08/30/24
07:59 07:59 07:59 07:59
Intake Total 98.0 / 98.0
Output Total 430 / 430
Balance -332.0 / -332.0
Physical Exam
Physical Exam
GEN: No distress, intubated, sedated
HEENT: supple, mmm
LUNGS: CTA B/L, no wheezes
CV: Reg, S1/S2, no murmur
ABD: soft, BS+, NT/ND
EXT: No cyanosis, clubbing, edema
NEURO: sedated
SKIN: Warm, pink, dry. No rash. Sternotomy incision c/d/i. CTs in place.
[2024-08-29 14:18] LABS: Glucose - Point of Care 98 mg/dl (70-99)
[2024-08-29] MEDS: NOVOLOG FLEXPEN SC ×2 (14:32→16:18)
[2024-08-29] MEDS: NSS 500 IV (14:32)
[2024-08-29] MEDS: CALCIUM GLUCONATE 100 IV (14:34)
[2024-08-29] MEDS: TYLENOL PO (14:37)
[2024-08-29] MEDS: NEURONTIN PO (14:37)
[2024-08-29 15:15] LABS: Glucose - Point of Care 102 mg/dl (70-99)
--- NOTE | 2024-08-29 15:45 | PTCARENOTE ---
placed on cpap wean by GRAPHIC TECHNICIAN.
[2024-08-29] MEDS: DILAUDID 0.25 MG IV (15:53)
[2024-08-29] MEDS: PACERONE PO (15:54)
[2024-08-29 16:24] LABS: Glucose - Point of Care 78 mg/dl (70-99)
[2024-08-29 16:28] LABS: B.E. -0.4 mmol/L; HCO3 24.8 mmol/L (21-28); Ionized Calcium 1.25 mMOL/L (1.15-1.33); O2 Saturation % 99.2 % (94-98); PCO2 42 mmHg (35-48); PO2 113 mmHg (83-108); Potassium 4.4 mMOL/L (3.5-5.1); pH 7.38 (7.35-7.45)
[2024-08-29 16:31] LABS: Hematocrit 35.4 % (39.0-52.0); Platelet Count 178 10^3/uL (130-400)
--- NOTE | 2024-08-29 16:40 | PTCARENOTE ---
extubated to 6L nc @ 1640 with SHIFT COMMANDER at bedside.
--- NOTE | 2024-08-29 16:43 | RESPNOTE ---
Respiratory: patient was extubated without incident, no stridor. SpO2 94% on 6 LPM nasal cannula.
[2024-08-29] MEDS: DILAUDID 0.5 MG IV ×2 (16:56→23:25)
[2024-08-29] MEDS: LR 250 ML IV (17:04)
[2024-08-29 18:33] LABS: Glucose - Point of Care 132 mg/dl (70-99)
[2024-08-29 20:44] LABS: Glucose - Point of Care 89 mg/dl (70-99)
[2024-08-29] MEDS: LOW STRENGTH ASPIRIN 81 MG PO (20:48)
[2024-08-29] MEDS: ANCEF 5 IV (20:49)
[2024-08-29] MEDS: SENOKOT-S 1 TABLET PO (20:49)
[2024-08-29] MEDS: LIPITOR 80 MG PO (21:53)
[2024-08-29] MEDS: PACERONE 200 MG PO (21:53)
[2024-08-29] MEDS: NEURONTIN 600 MG PO (21:58)
[2024-08-29] MEDS: SYNTHROID 100 MCG PO (21:58)
[2024-08-29] MEDS: DELTASONE 1 MG PO (21:58)
[2024-08-29] MEDS: TYLENOL 1000 MG PO (21:59)
[2024-08-29 22:44] LABS: Glucose - Point of Care 88 mg/dl (70-99)
--- NOTE | 2024-08-29 23:00 | PTCARENOTE ---
report received from previous RN, walking rounds done. pt in bed, AAOx4. pt c/po sternal incision pain. see MAR for PRN expert medical writer. SR on monitor, HR 90s. B/L radial and DP pulses palpable. heart tones clear. RIJ cordis + swan intact w KVOs infusing.
CI > 2. PAPs 30s/20s. CVP ~12.left radial art line intact. Levo infusing @ 2mcg. SBP 100s-110s. epicardial wires intact and off. B/L breath sounds present. POX 98% on 4LNC. CT x3 intact to -20 cm wall suction, drainage WNL, no air leak present. IS
encouraged. hypoactive bowel sounds present. ABD soft, nontender. Insulin gtt infusing per glycemic protocol. pt tolerating ice and sips of water with meds. manning catheter intact, draining CYU, UO adequate. PIV x2 intact and patent. all surgical
sites stable. see worklist for full assessment, VS, and interventions. pt resting comfortably.
[2024-08-29] MEDS: ZOFRAN 4 MG IV (23:25)
[2024-08-30] VITALS (43 sets, daily range): BP systolic 76–135; BP diastolic 45–99; PULSE 90; O2SAT 94–95; BMI 36.9
[2024-08-30 00:10] LABS: Glucose - Point of Care 99 mg/dl (70-99)
[2024-08-30 03:06] LABS: Glucose - Point of Care 102 mg/dl (70-99)
[2024-08-30 04:05] LABS: Blood Urea Nitrogen 25 mg/dl (9-20); Calcium 8.5 mg/dl (8.4-10.2); Carbon Dioxide 26 mmol/L (22-30); Chloride 101 mmol/L (98-107); Estimated Creatinine Clearance 108 ml/min; Glucose 107 mg/dl (70-99); Magnesium 2.1 mg/dl (1.6-2.3); Potassium 4.6 mmol/L (3.5-5.1); Sodium 136 mmol/L (135-145); eGFR > 60.00
[2024-08-30 04:10] LABS: Hematocrit 33.3 % (39.0-52.0); Hemoglobin 11.1 g/dL (13.0-18.0); Mean Corp Hgb Conc. 33.3 g/dL (33.0-37.0); Mean Corpuscular Hgb 29.8 pg (27.0-31.0); Mean Corpuscular Volume 89.3 fL (80.0-94.0); Mean Platelet Volume 9.2 fL (7.4-10.4); Platelet Count 217 10^3/uL (130-400); Red Blood Cell Count 3.73 10^6/uL (4.70-6.10); Red Cell Dist. Width 12.8 % (11.5-14.5); White Blood Cell Count 21.3 10^3/uL (4.8-10.8)
[2024-08-30] MEDS: ANCEF 5 IV ×2 (04:17→13:29)
[2024-08-30] MEDS: ROXICODONE 5 MG PO ×4 (04:17→20:17)
[2024-08-30] MEDS: DILAUDID 0.5 MG IV (04:17)
[2024-08-30 04:25] LABS: Glucose - Point of Care 97 mg/dl (70-99)
--- NOTE | 2024-08-30 04:30 | PTCARENOTE ---
pt VSS, no acute changes. SR 90s. CI >2. SBP 110s on 2mcg Levo gtt. POX 96% on 2LNC. CT output and UO WNL. all surgical sites stable. Insulin gtt maintained per protocol. AM labs drawn and sent. EKG done. pt resting between care.
[2024-08-30 05:45] LABS: Glucose - Point of Care 93 mg/dl (70-99)
[2024-08-30] MEDS: TYLENOL 1000 MG PO ×3 (05:45→22:22)
--- NOTE | 2024-08-30 05:52 | W.PN.CT ---
Today's Communication / Plan
-
-pod #1
-no significant issues overnight
-CI 2.20, CO 4.85, SVR 956. Drips: insulin
-CT output: 2 meds 110/240, L pleur 25/80 in 12/24 hrs
-deline
-continue insulin
-d/c Harper
-current meds (ASA, Plavix, Lipitor, Lopressor, Amio, Protonix)
-encourage IS, OOB
Assessment / Plan
-
- CAD/ symptomatic AV stenosis - s/p x CABG x 4 (GARZA to LAD, Ao to RSVG to D1 seq to D2, Ao to RSVG to RPDA), aortic valve replacement [#27 mm bioprosthesis], left atrial appendage exclusion [#35 mm clip] on 08/29/[address] Cerda, pod #1
- Intraop SIOBHAN: LVEF was 60-65% pre and post procedure with no new regional wma. There was no prosthetic PVL or AI. Mean gradient across the prosthesis was 6 mmHg. The left atrial appendage was free of any thrombus or debris preoperatively and found
to be totally occlusive with no residual flow postoperatively
- Exertional angina
- Diabetes II
- Multivessel coronary disease
- Moderately severe aortic valve stenosis
- Class 2 obesity with a BMI of 36
- Tobacco abuse, quit 2010
- Family history for cardiovascular disease
- Hypertension
- Hyperlipidemia
- Acute postop blood loss anemia - stable, no transfusion
- Acute postop atelectasis
- Acute postop hypovolemia with subsequent hypervolemia
Discussed patient care with: Nursing and Care Team
Subjective
Procedure
s/p x CABG x 4 (GARZA to LAD, Ao to RSVG to D1 seq to D2, Ao to RSVG to RPDA), aortic valve replacement [#27 mm bioprosthesis], left atrial appendage exclusion [#35 mm clip] on 08/29/[address] Cerda
-
Date of Service: August 30, 2024
Objective Data
-
PT 17.7 Sec (11.4-14.6) H 08/29/24 13:04
INR 1.40 08/29/24 13:04
APTT 33.3 Sec (23.4-35.0) 08/29/24 13:04
Vital Signs
Vital Signs
Temp Pulse Resp BP Pulse Ox
98.3 F 92 15 124/71 97
08/30/24 01:00 08/30/24 01:00 08/30/24 01:00 08/30/24 01:00 08/30/24 01:00
CT Intake/Output/Weight
08/29/24 08/29/24 08/30/24
06:59 18:59 06:59
Intake Total 339.1 / 640.1 301.0 / 640.1
Output Total 965 / 1310 345 / 1310
Balance -625.9 / -669.9 -44.0 / -669.9
SaO2: 97
Physical Exam
-
General: Awake and AOx3
Cardiovascular: Regular rate & rhythm, No Murmurs and No Rub
Respiratory: Decreased Breath Sounds
Sternum: Stable
Incision: Clean, Dry and Intact
Extremities: No Edema (2+DPs b/l)
Abdomen: soft, nontender, +decreased bowel sounds
Data Reviewed
-
Lab Results: Results Reviewed
Medications: Active Meds Reviewed
Chest X-Ray: Report Reviewed and Image Reviewed
ECG: Report Reviewed and Image Reviewed
--- NOTE | 2024-08-30 06:00 | PTCARENOTE ---
Levo gtt off. RIJ swan and left radial art line d/c'd per orders. manning d/c'd. pt attempted OOB to chair, pt became very dizzy and lightheaded. pt assisted back to bed. VSS.
[2024-08-30] MEDS: PROTONIX 40 MG PO (07:41)
[2024-08-30] MEDS: NEURONTIN 300 MG PO ×2 (07:41→12:47)
[2024-08-30] MEDS: PACERONE 200 MG PO ×3 (07:41→22:21)
[2024-08-30] MEDS: LOW STRENGTH ASPIRIN 81 MG PO (07:41)
[2024-08-30] MEDS: MAGNESIUM OXIDE 500 MG PO ×2 (07:41→20:17)
[2024-08-30] MEDS: PLAVIX 75 MG PO (07:42)
[2024-08-30] MEDS: SENOKOT-S 1 TABLET PO ×2 (07:42→20:17)
[2024-08-30] MEDS: LIDOCAINE 4% PATCH 1 PATCH TOPICAL (07:42)
--- NOTE | 2024-08-30 07:45 | W.PN.INTV ---
Today's Communication / Plan
Recommendations
Tolerated extubation
Begin to deline
Pressors weaned
Monitor chest tube output
Insulin drip continues
Increase activity
Continues ICU level of care
Outpatient sleep apnea evaluation
Assessment
-
68-year-old obese former smoking male who quit in 2010 with underlying hypertension, hyperlipidemia and diabetes found to have significant multivessel CAD and underwent CABG-tax economist consulted for postoperative ventilator/critical care management
08/29/2024.
Multivessel CAD with preoperative preserved EF
Status post CABG x 4-GARZA-LAD, AO to RSVG to D1 sequential to D2, AO to RSVG to RPDA, aortic valve replacement 27 mm bioprosthetic-Dr. Cerda 08/29/2024
Mild anemia-hemoglobin 11.7
Conditions present prior to admission:
Hypertension.
Hyperlipidemia.
CAD/multivessel-CABG/AVR 08/29/2024.
Obesity.
Diabetes.
Hernia.
Plan
Tolerated extubation
Wean FiO2
Encourage incentive spirometry
Increase activity
Aspiration precautions
Pulmonary artery catheter and arterial line will be removed
Pressors have been weaned
Continue to monitor chest tube output
Follow hemoglobin
Continue to follow platelet count and coags
Transfuse blood product as needed
CT surgery following chest tubes as well
Follow blood sugar
Insulin supplementation continues as needed
Early nutrition
Early mobilization
DVT prophylaxis
Patient at significant risk for obstructive sleep apnea-recommend outpatient sleep [id number] leave instructions
Critical care statement: A total of 35 minutes of critical care time was provided for this patient today. This includes management of ventilator, spontaneous breathing trial, arterial blood gases, pressors, of unstable vital signs, evaluation of the
patient at bedside, insulin drip management, reviewing the patient's pertinent medical records including radiographs, microbiology, laboratory evaluations, and discussion with primary team and critical care nursing.
Diagnostic data:
Chest x-ray 08/29/2024-ET tube and pulmonary artery catheter in position, low lung volumes
CT chest 08/22/2024-dense aortic calcification, mild bronchial wall thickening suggesting bronchitis, basilar atelectasis
Cardiac catheterization 07/25/2024-multivessel CAD and moderate aortic stenosis
Subjective Dataa
Subjective Data
Date of Service:
Date of Service: August 30, 2024
Chief Complaint: Senior C Web Developer Follow Up, Pulmonary Follow Up and Vent Management Follow Up
Subjective:
Tolerated extubation, no complaints of shortness of breath, pain controlled, no abdominal pain
Review of Systems
General: Other (Per HPI)
Objective Data
Data Reviewed
Vital Signs / I&O / Oxygen:
Vital Signs
Temp Pulse Resp BP Pulse Ox
98.1 F 89 18 97/56 94
08/30/24 07:39 08/30/24 07:41 08/30/24 07:39 08/30/24 07:41 08/30/24 07:39
Intake and Output
08/29/24 08/30/24 08/31/24
06:59 06:59 06:59
Intake Total 823.6 / 823.6 10.4 / 10.4
Output Total 1640 / 1640 0 / 0
Balance -816.4 / -816.4 10.4 / 10.4
SaO2 [CPAP] 96
SaO2 [P-SIMV] 94
SaO2 94
Nasal Cannula flow liters per 2
minute
Physical Exam
General: Respiratory Distress (n) and Comfortable
HEENT: Normocephalic, Anicteric and Moist Mucous Membranes
Cardiovascular: Regular Rhythm
Respiratory: Wheeze (n), Crackles (Few basilar), Rhonchi (n), Non-Labored Respirations, Accessory Resp Muscle Use and Stridor
GI: Soft, Non Distended and Non Tender
Neurology: Awake, Alert and No Motor Deficits
Skin: Warm, Good Color, Cyanosis (n), Jaundice (n) and Rash (n)
Labs/Micro/Reports
Lab Data
08/30/24 03:03
08/30/24 03:03
Laboratory Results
08/29/24 08/29/24
13:04 16:19
PT 17.7 H
INR 1.40
APTT 33.3
pH 7.35 7.38
pCO2 44 42
pO2 156 H 113 H
HCO3 24.3 24.8
O2 Delivery Level
[2024-08-30] MEDS: BACTROBAN 2% OINTMENT 1 APPLIC NASAL ×2 (07:50→20:12)
[2024-08-30 08:04] LABS: Glucose - Point of Care 96 mg/dl (70-99)
[2024-08-30 08:04] LABS: Glucose - Point of Care 125 mg/dl (70-99)
--- NOTE | 2024-08-30 08:14 | PTCARENOTE ---
Rec'd pt this shift awake and alert. Pt NSR on monitor. 2l n/c oxygen. Pulse ox 94%. Pt denies pain, denies sob. Pt on Insulin drip and titrated according to glycemic protocol. Pt encouraged to cough and deep breathe and to use IS. AM meds given.
See worklist for VS/I and O and assessments.
[2024-08-30] MEDS: NOVOLOG FLEXPEN SC (09:01)
--- NOTE | 2024-08-30 09:03 | W.PN.CARDCBS ---
Today's Communication / Plan
-
Recommendations:
-Working toward removal of chest tube x 1
-Encouraged incentive spirometry
-On chronic prednisone WBC and for sx/sign of infection given diabetes and steroid use
-Will follow
Impression / Plan
-
Primary Computer Trainer: Dr. Mishra of [facility]
Assessment:
s/p CABG x4 In situ GARZA to LAD, Ao to RSVG to D1 seq to D2, Ao to RSVG to RPDA, bioprosthetic AVR with (#27 mm Medtronic Avalis Ultra), JUSTEN clip 08/29/24
MV CAD by cath
Mod : s/p #27 mm Medtronic Avalis Ultra
Leukocytosis
Chronic RBBB
DM2 : Chronically on orals: metformin and semaglutide. Now on IV insulin
Rheumatoid Arthritis (his report) on chonic low dose prednisone 1mg daily
HTN
HLD
Obesity
Tobacco use
ECHO 07/10/24: Normal LV systolic function, moderate , mild AR with mean gradient 33 mmHg, EBONY 1.1 cm�
Plan:
-s/p CABG x4 In situ GARZA to LAD, Ao to RSVG to D1 seq to D2, Ao to RSVG to RPDA, bioprosthetic AVR with (#27 mm Medtronic Avalis Ultra), JUSTEN clip 08/29/24
-Awake and interactive
-Mild leukocytosis will need to follow give DM and chronic steroid dose: Follow
-post op EKG SR with RBBB
-hgb 11.7
-Preop was on regimen of Toprol 100 mg nightly, lisinopril 10 mg nightly, Imdur 60 mg nightly.
-continue post op care
-d/w nursing
Progress Note - Computer Trainer
Subjective
Date of Service: August 30, 2024
Uncomfortable post op otherwise no other complaints. Breathing okay
Objective
Labs:
08/30/24 03:03
08/30/24 03:03
Labs
Hgb 11.1 g/dL (13.0-18.0) L 08/30/24 03:03
Hct 33.3 % (39.0-52.0) L 08/30/24 03:03
Plt Count 217 10^3/uL (130-400) D 08/30/24 03:03
PT 17.7 Sec (11.4-14.6) H 08/29/24 13:04
INR 1.40 08/29/24 13:04
APTT 33.3 Sec (23.4-35.0) 08/29/24 13:04
Sodium 136 mmol/L (135-145) 08/30/24 03:03
Potassium 4.6 mmol/L (3.5-5.1) 08/30/24 03:03
BUN 25 mg/dl (9-20) H 08/30/24 03:03
Creatinine 0.8 mg/dL (0.7-1.3) 08/30/24 03:03
Glucose 107 mg/dl (70-99) H 08/30/24 03:03
Vital Signs and I&O:
Vital Signs
Temp Pulse Resp BP Pulse Ox
98.1 F 89 18 97/56 94
08/30/24 07:39 08/30/24 07:41 08/30/24 07:39 08/30/24 07:41 08/30/24 08:12
Vital Signs
Temp Pulse Resp BP Pulse Ox
98.1 F 89 18 97/56 94
08/30/24 07:39 08/30/24 07:41 08/30/24 07:39 08/30/24 07:41 08/30/24 08:12
Intake & Output
08/27/24 08/28/24 08/29/24 08/30/24
23:59 23:59 23:59 23:59
Intake Total 554.3 / 612.1 279.7 / 279.7
Output Total 1270 / 1310 370 / 370
Balance -715.7 / -697.9 -90.3 / -90.3
Physical Exam
Physical Exam
Gen: Lying in bed. Awake and conversant. No acute distress
HEENT: NC/AT, sclera anicteric
Lungs: Chest tubes in place. Clear anterior
CV: RRR, no rub
Ext: Wrapped left calf.
Neuro: no gross deficits
[2024-08-30 10:25] LABS: Glucose - Point of Care 113 mg/dl (70-99)
[2024-08-30] MEDS: ProAmatine 5 MG PO (10:25)
[2024-08-30] MEDS: LOPRESSOR PO (10:48)
--- NOTE | 2024-08-30 11:06 | PTCARENOTE ---
sat pt on side of bed. Pt c/o feeling dizzy and lighthead. BP <80 systolic. Pt placed back to bed. NP. Mckay notified. Midodrine given.
--- NOTE | 2024-08-30 12:20 | CM ---
Reviewed chart. Met with and Mrs. Welsh to review discharge plans. He states prior to admission he resides with his spouse in a two story with two steps to enter. He states he has a full flight of steps to get to bedroom/full bathroom. He has
a powder room on the first floor. Prior to admission he was independent with ambulation and adls. He states he does not have any DME in the home. He states he has a prescription plan and uses [facility]. His spouse states she will be home to
assist in his care if needed. Medical work-up in progress. The discharge plan is to return home with a home visit by the Transitional Care Nurse when medically stable.
[2024-08-30 12:21] LABS: Glucose - Point of Care 107 mg/dl (70-99)
[2024-08-30] MEDS: LOPRESSOR 12.5 MG PO ×2 (12:47→20:17)
[2024-08-30] MEDS: NOVOLIN R INSULIN INFUSION 100 IV (13:30)
[2024-08-30] MEDS: NSS IV ×2 (13:30→18:40)
[2024-08-30] MEDS: NOVOLOG FLEXPEN 2 UNITS SC ×2 (13:37→17:58)
[2024-08-30 14:09] LABS: ACT+ - POC 145 Seconds (82-134)
[2024-08-30 14:10] LABS: Glucose - Point of Care 91 mg/dl (70-99)
[2024-08-30] MEDS: FERRLECIT 110 MG IV (14:16)
--- NOTE | 2024-08-30 14:33 | W.PN.ANS.POP ---
Anesthesia Post Operative
- Anesthesia Post Op Note
Vital Signs Stable-See Nursing Note: Yes
Airway Patent: Yes
Adequate Pain Control: Yes
Change in Mental Status: No
Current Postoperative Nausea & Vomiting: No
Anesthesia Complications: No
General Anesthetic Recall: No
Unplanned Admission: No
Post Op Hydration Adequate: Yes
- -
Pt awake and alert, resting comfortably with no anesthesia c/o at time of post op visit. Some earlier N/V, tolerating some po's. VSS
--- NOTE | 2024-08-30 14:51 | PTCARENOTE ---
Pt bladder scanned for 250ml. Nely MOSS notified and aware. Pt drinking fluids without difficulty.
--- NOTE | 2024-08-30 14:52 | CM ---
Reviewed chart. Met with and Mrs. Welsh to review discharge plans. He states he is feeling okay. He states he is still going to stay at his friends house with his son for his recovery, He is agreeable to VNA services with [facility] His friends
home is a one story jourdan with one step to enter. Prior to admission he was independent with ambulation and adls. He has a walker, bedside commode. His friends house has an easy lift chair. He has a prescription plan . Medical work-up in progress.
The discharge plan is to go to his [facility] home [facility].
[2024-08-30] MEDS: NSS 500 IV (15:22)
[2024-08-30] MEDS: NSS 250 IV (15:23)
[2024-08-30 16:08] LABS: Glucose - Point of Care 109 mg/dl (70-99)
--- NOTE | 2024-08-30 16:14 | PTCARENOTE ---
NSS bolus given.
[2024-08-30 17:57] LABS: Glucose - Point of Care 142 mg/dl (70-99)
--- NOTE | 2024-08-30 18:42 | PTCARENOTE ---
Pt unable to void. Straight cathed for 350ml. Pt OOB up in chair for meals.
[2024-08-30 19:21] LABS: Hepatitis C Antibody Negative (Negative)
[2024-08-30 20:07] LABS: Glucose - Point of Care 152 mg/dl (70-99)
--- NOTE | 2024-08-30 20:30 | PTCARENOTE ---
Patient received OOB in chair. Patient assisted to bed with assist x2. Patient A+A+Ox3. No neurological deficits noted. No c/o headache, dizziness or lightheadedness. No s/s of respiratory distress. No c/o SOB. Two chest tubes - Mediastinal
x2 - Intact and patent - 10-30 ml red drainage - No air leak. Chest tube dressing intact. Sinus Rhythm with BBC. Heart rate 80's. Patient with no c/o chest pain, pressure or discomfort. Normoactive bowel sounds. No BM. Positive flatus. No
c/o nausea. No vomiting. No urge to void at this time. Sternal incision - Surgical adhesive - Open to air. Left groin puncture site intact. Left knee incision intact - Surgical adhesive - Open to air. Positive, palpable pulses. Right I.J.
Cordis. Insulin gtt - Glycemic Protocol. Patient with no c/o back or flank pain. Assessment as documented.
[2024-08-30 22:10] LABS: Glucose - Point of Care 132 mg/dl (70-99)
[2024-08-30] MEDS: DELTASONE 1 MG PO (22:20)
[2024-08-30] MEDS: LIPITOR 80 MG PO (22:20)
[2024-08-30] MEDS: NEURONTIN 600 MG PO (22:21)
[2024-08-30] MEDS: SYNTHROID 100 MCG PO (22:21)
[2024-08-31] VITALS (26 sets, daily range): BP systolic 85–129; BP diastolic 45–76; PULSE 90–97; BMI 37.4
[2024-08-31 00:44] LABS: Glucose - Point of Care 74 mg/dl (70-99)
--- NOTE | 2024-08-31 01:00 | PTCARENOTE ---
Patient sleeping without difficulty. No urge to void. Bladder scanned for 73ml. Physician's Computer Assistant for CT Surgery, Breann Quan PA-C, made aware. No further changes from previous assessment.
[2024-08-31 02:15] LABS: Glucose - Point of Care 77 mg/dl (70-99)
[2024-08-31] MEDS: ROXICODONE 5 MG PO ×3 (02:24→19:12)
[2024-08-31 04:04] LABS: Glucose - Point of Care 89 mg/dl (70-99)
--- NOTE | 2024-08-31 04:30 | PTCARENOTE ---
Patient resting in bed. Patient A+A+Ox3. No neurological deficits noted. O2 1L via NC. SpO2 96%. Sinus Rhythm with BBC. Heart rate 80's. AM labs collected and sent. Patient given CHG bath and linens changed. Chest tube dressing changed.
Assessment/Interventions as documented.
[2024-08-31 04:37] LABS: Hematocrit 28.9 % (39.0-52.0); Hemoglobin 9.5 g/dL (13.0-18.0); Mean Corp Hgb Conc. 32.9 g/dL (33.0-37.0); Mean Corpuscular Hgb 29.8 pg (27.0-31.0); Mean Corpuscular Volume 90.6 fL (80.0-94.0); Mean Platelet Volume 9.4 fL (7.4-10.4); Platelet Count 147 10^3/uL (130-400); Red Blood Cell Count 3.19 10^6/uL (4.70-6.10); Red Cell Dist. Width 12.8 % (11.5-14.5); White Blood Cell Count 17.2 10^3/uL (4.8-10.8)
[2024-08-31 04:42] LABS: Blood Urea Nitrogen 25 mg/dl (9-20); Calcium 7.9 mg/dl (8.4-10.2); Carbon Dioxide 31 mmol/L (22-30); Chloride 97 mmol/L (98-107); Estimated Creatinine Clearance 109 ml/min; Glucose 85 mg/dl (70-99); Magnesium 2.3 mg/dl (1.6-2.3); Potassium 4.3 mmol/L (3.5-5.1); Sodium 133 mmol/L (135-145); eGFR > 60.00
[2024-08-31 06:24] LABS: Glucose - Point of Care 84 mg/dl (70-99)
[2024-08-31] MEDS: TYLENOL 1000 MG PO ×3 (06:32→22:22)
--- NOTE | 2024-08-31 06:34 | W.PN.CT ---
Today's Communication / Plan
-
-pod#2
-pt has no complaints, says that feels rested
-unable to urinate - straight cathed for 350 cc yesterday and this am. Started Flomax
-CT outputs: 2 meds 120/120 in 12/24 hrs
-wean off O2 - pOx 96 on 1L
-transition from insulin to po meds
-continue current meds
-encourage IS, OOB
Assessment / Plan
-
- CAD/ symptomatic AV stenosis - s/p x CABG x 4 (GARZA to LAD, Ao to RSVG to D1 seq to D2, Ao to RSVG to RPDA), aortic valve replacement [#27 mm bioprosthesis], left atrial appendage exclusion [#35 mm clip] on 08/29/[address] Cerda, pod #2
- Intraop SIOBHAN: LVEF was 60-65% pre and post procedure with no new regional wma. There was no prosthetic PVL or AI. Mean gradient across the prosthesis was 6 mmHg. The left atrial appendage was free of any thrombus or debris preoperatively and found
to be totally occlusive with no residual flow postoperatively
- Exertional angina
- Diabetes II
- Multivessel coronary disease
- Moderately severe aortic valve stenosis
- Class 2 obesity with a BMI of 36
- Tobacco abuse, quit 2010
- Family history for cardiovascular disease
- Hypertension
- Hyperlipidemia
- Acute postop blood loss anemia - stable, no transfusion
- Acute postop atelectasis
- Acute postop hypovolemia with subsequent hypervolemia
- Acute postop urinary retention - started Flomax
Discussed patient care with: Nursing and Care Team
Subjective
Procedure
s/p x CABG x 4 (GARZA to LAD, Ao to RSVG to D1 seq to D2, Ao to RSVG to RPDA), aortic valve replacement [#27 mm bioprosthesis], left atrial appendage exclusion [#35 mm clip] on 08/29/[address] Cerda
-
Date of Service: August 31, 2024
Objective Data
-
Lab Results
08/31/24 03:58
08/31/24 03:58
PT 17.7 Sec (11.4-14.6) H 08/29/24 13:04
INR 1.40 08/29/24 13:04
APTT 33.3 Sec (23.4-35.0) 08/29/24 13:04
Vital Signs
Vital Signs
Temp Pulse Resp BP Pulse Ox
98.0 F 90 16 123/72 96
08/31/24 04:20 08/31/24 05:45 08/31/24 04:20 08/31/24 04:20 08/31/24 04:20
CT Intake/Output/Weight
08/30/24 08/30/24 08/31/24
06:59 18:59 06:59
Intake Total 484.5 / 823.6 1633.6 / 1992.6 359.0 / 1992.6
Output Total 675 / 1640 700 / 820 120 / 820
Balance -190.5 / -816.4 933.6 / 1172.6 239.0 / 1172.6
SaO2: 96
Physical Exam
-
General: Awake and AOx3
Cardiovascular: Regular rate & rhythm, No Murmurs and No Rub
Respiratory: Decreased Breath Sounds
Sternum: Stable
Incision: Clean, Dry and Intact
Extremities: Edema +1
Data Reviewed
-
Lab Results: Results Reviewed
Medications: Active Meds Reviewed
Chest X-Ray: Report Reviewed and Image Reviewed
ECG: Report Reviewed and Image Reviewed
[2024-08-31] MEDS: FLOMAX 0.4 MG PO ×2 (06:42→08:24)
--- NOTE | 2024-08-31 07:40 | W.PN.INTV ---
Today's Communication / Plan
Recommendations
Monitor chest tube output
Wean oxygen
Increase activity
Transition from insulin
Monitor hypotension-consider fluid bolus
Likely transferred to telemetry later-call pulmonary if respiratory issues arise
Assessment
-
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
08/29/2024.
Multivessel CAD with preoperative preserved EF
Status post CABG x 4-GARZA-LAD, AO to RSVG to D1 sequential to D2, AO to RSVG to RPDA, aortic valve replacement 27 mm bioprosthetic-Dr. Cerda 08/29/2024
Mild anemia-hemoglobin 11.7
Conditions present prior to admission:
Hypertension.
Hyperlipidemia.
CAD/multivessel-CABG/AVR 08/29/2024.
Obesity.
Diabetes.
Hernia.
Plan
Tolerated extubation
Wean FiO2
Encourage incentive spirometry
Increase activity
Aspiration precautions
Pulmonary artery catheter and arterial line will be removed
Pressors have been weaned
Some hypotension noted
Consider fluid bolus
Continue to monitor chest tube output
Follow hemoglobin
Continue to follow platelet count and coags
Transfuse blood product as needed
CT surgery following chest tubes as well
Follow blood sugar
Insulin supplementation continues as needed-currently on insulin drip hopefully will be weaned off by noon
Early nutrition
Early mobilization
DVT prophylaxis
Patient at significant risk for obstructive sleep apnea-recommend outpatient sleep [id number] leave instructions
Patient will be transferred to telemetry phase once off insulin drip around 1 PM-call pulmonary if respiratory issues arise
Reviewed the patient's pertinent medical records including radiographs, microbiology, laboratory evaluations, and discussion with primary team, and critical care nursing.
Diagnostic data:
Chest x-ray 08/29/2024-ET tube and pulmonary artery catheter in position, low lung volumes
CT chest 08/22/2024-dense aortic calcification, mild bronchial wall thickening suggesting bronchitis, basilar atelectasis
Cardiac catheterization 07/25/2024-multivessel CAD and moderate aortic stenosis
Subjective Dataa
Subjective Data
Date of Service:
Date of Service: August 31, 2024
Chief Complaint: Technical Instructor Course Developer Follow Up, Pulmonary Follow Up and Vent Management Follow Up
Subjective:
No complaints of shortness of breath, chest pain, abdominal pain, pulses present
Review of Systems
General: Other (Per HPI)
Objective Data
Data Reviewed
Vital Signs / I&O / Oxygen:
Vital Signs
Temp Pulse Resp BP Pulse Ox
98.0 F 90 16 123/72 96
08/31/24 04:20 08/31/24 05:45 08/31/24 04:20 08/31/24 04:20 08/31/24 06:36
Intake and Output
08/30/24 08/31/24 09/01/24
06:59 06:59 06:59
Intake Total 823.6 / 823.6 1992.6 / 1991.6
Output Total 1640 / 1640 1320 / 1320
Balance -816.4 / -816.4 672.6 / 672.6
SaO2 [CPAP] 96
SaO2 [P-SIMV] 94
SaO2 96
Nasal Cannula flow liters per 1
minute
Physical Exam
General: Respiratory Distress (n) and Comfortable
HEENT: Normocephalic, Anicteric and Moist Mucous Membranes
Cardiovascular: Regular Rhythm
Respiratory: Wheeze (n), Crackles (Few basilar), Rhonchi (n), Non-Labored Respirations, Accessory Resp Muscle Use and Stridor
GI: Soft, Non Distended and Non Tender
Neurology: Awake, Alert and No Motor Deficits
Skin: Warm, Good Color, Cyanosis (n), Jaundice (n) and Rash (n)
Labs/Micro/Reports
Lab Data
08/31/24 03:58
08/31/24 03:58
[2024-08-31 08:11] LABS: Glucose - Point of Care 113 mg/dl (70-99)
[2024-08-31] MEDS: LOPRESSOR PO ×2 (08:23→08:38)
[2024-08-31] MEDS: NEURONTIN 300 MG PO ×2 (08:23→12:15)
[2024-08-31] MEDS: PLAVIX 75 MG PO (08:23)
[2024-08-31] MEDS: PACERONE 200 MG PO ×2 (08:24→16:06)
[2024-08-31] MEDS: MAGNESIUM OXIDE 500 MG PO ×2 (08:24→20:07)
[2024-08-31] MEDS: BACTROBAN 2% OINTMENT 1 APPLIC NASAL ×2 (08:24→20:07)
[2024-08-31] MEDS: SENOKOT-S 1 TABLET PO ×2 (08:24→20:07)
[2024-08-31] MEDS: PROTONIX 40 MG PO (08:24)
[2024-08-31] MEDS: LOW STRENGTH ASPIRIN 81 MG PO (08:24)
[2024-08-31] MEDS: LIDOCAINE 4% PATCH 1 PATCH TOPICAL (08:24)
[2024-08-31] MEDS: ProAmatine 5 MG PO ×3 (08:53→17:49)
[2024-08-31] MEDS: NOVOLOG FLEXPEN SC (09:44)
[2024-08-31 10:00] LABS: Glucose - Point of Care 91 mg/dl (70-99)
--- NOTE | 2024-08-31 10:25 | W.PN.CARDCBS ---
Addendum entered and electronically signed by Patricio Poole MD 08/31/24 14:53:
I saw and examined the patient.
The Breakdown Person's note was reviewed and I agree with the note.
Comment: Briefly, 68-year-old man who underwent CABG x 4 and aortic valve replacement on 08/29/2024
He was resting comfortably in bed at the time of my evaluation in the CVICU
Offered no cardiac complaints to me
Reportedly some difficulty getting him out of bed due to orthostasis earlier today
Agree with holding beta-sydni, Lasix and adding midodrine
Continues on aspirin/Plavix and high intensity statin
We will continue to follow with you
Original Note:
Today's Communication / Plan
-
continue post op care
follow ortho VS, continue midodrine
Impression / Plan
-
Primary Shop Mechanic Helper: Dr. Mishra of [facility]
Assessment:
s/p CABG x4 In situ GARZA to LAD, Ao to RSVG to D1 seq to D2, Ao to RSVG to RPDA, bioprosthetic AVR with (#27 mm Medtronic Avalis Ultra), JUSTEN clip 08/29/24
MV CAD by cath
Mod : s/p #27 mm Medtronic Avalis Ultra
Leukocytosis
Chronic RBBB
DM2 : Chronically on orals: metformin and semaglutide. Now on IV insulin
Rheumatoid Arthritis (his report) on chonic low dose prednisone 1mg daily
HTN
HLD
Obesity
Tobacco use
ECHO 07/10/24: Normal LV systolic function, moderate , mild AR with mean gradient 33 mmHg, EBONY 1.1 cm�
Plan:
-s/p CABG x4 In situ GARZA to LAD, Ao to RSVG to D1 seq to D2, Ao to RSVG to RPDA, bioprosthetic AVR with (#27 mm Medtronic Avalis Ultra), JUSTEN clip 08/29/24
-with some lightheadedness and orthostasis. continue midodrine, wean as able
-wean supp O2
-remains in SR with RBBB on review of tele overnight. continue amiodarone, lopressor on hold
-hgb 9.5. continue asa, plavix
-follow urinary retention
-continue post op care, IS
-Preop was on regimen of Toprol 100 mg nightly, lisinopril 10 mg nightly, Imdur 60 mg nightly.
-d/w nursing
Progress Note - Shop Mechanic Helper
Subjective
Date of Service: August 31, 2024
Reports some lightheadedness with standing up
Objective
Labs:
08/31/24 03:58
08/31/24 03:58
Labs
Hgb 9.5 g/dL (13.0-18.0) L 08/31/24 03:58
Hct 28.9 % (39.0-52.0) L 08/31/24 03:58
Plt Count 147 10^3/uL (130-400) D 08/31/24 03:58
PT 17.7 Sec (11.4-14.6) H 08/29/24 13:04
INR 1.40 08/29/24 13:04
APTT 33.3 Sec (23.4-35.0) 08/29/24 13:04
Sodium 133 mmol/L (135-145) L 08/31/24 03:58
Potassium 4.3 mmol/L (3.5-5.1) 08/31/24 03:58
BUN 25 mg/dl (9-20) H 08/31/24 03:58
Creatinine 0.8 mg/dL (0.7-1.3) 08/31/24 03:58
Glucose 85 mg/dl (70-99) 08/31/24 03:58
Vital Signs and I&O:
Vital Signs
Temp Pulse Resp BP Pulse Ox
98.1 F 90 16 113/64 94
08/31/24 08:00 08/31/24 08:53 08/31/24 08:00 08/31/24 08:53 08/31/24 08:06
Vital Signs
Temp Pulse Resp BP Pulse Ox
98.1 F 90 16 113/64 94
08/31/24 08:00 08/31/24 08:53 08/31/24 08:00 08/31/24 08:53 08/31/24 08:06
Intake & Output
08/29/24 08/30/24 08/31/24 09/01/24
07:59 07:59 07:59 07:59
Intake Total 834.0 / 834.0 1982.2 / 2102.6 120.4 / 120.4
Output Total 1640 / 1640 1320 / 1330 10 / 10
Balance -806.0 / -806.0 662.2 / 772.6 110.4 / 110.4
Physical Exam
Physical Exam
GEN: No distress, awake, alert, oriented x3. on supp O2
HEENT: supple, anicteric, mmm, eomi
LUNGS: Decreased BS bases, no wheezes
CV: Reg, S1/S2, no murmur
ABD: soft, NT/ND
EXT: No cyanosis, clubbing. Trace edema of B/L LE
NEURO: Gross non-focal
SKIN: Warm, pink, dry. No rash. Sternotomy incision c/d/i
--- NOTE | 2024-08-31 10:56 | PTCARENOTE ---
Mediastinal CTs removed per order. Site cleansed with CHG, vaseline gauze dressing and abdominal dressing applied. Patient tolerated procedure. Assessment of needs ongoing.
--- NOTE | 2024-08-31 11:33 | PN.DE.MGMTRT ---
Insulin Management
- -
08/31/2024 Diabetes Management Consult
Patient admitted 08/29 to OR for CABG x 4. MH diabetes 20 years, HTN, HLD, hernia, seasonal allergies. Prior to admission was taking 41 units lantus @ hs with metformin 1000 BID and semaglutide once weekly. A1C is 6.4%, cr .8, eGFR > 60.
Patient is awake alert and oriented in bed able to discuss diabetes plan.
POD 2 will transition from glycemic protocol insulin infusion to subcutaneous insulin. Patient is agreeable to start Farxiga, will start 10 mg now, 1000 mg metformin @ dinner and lantus 40 units @ 1999. Insulin infusion off at 10pm. Will check 3am
glucose. To start low corrective insulin in AM.
Patient states he has glucose monitor with plenty of supplies.
Diabetes History
- -
Type of Diabetes: 2 requiring insulin
Pre-Admission Diabetes Regimen
08/31/24
03:58
Creatinine 0.8
Lab Results
Hemoglobin A1c 6.4 % (4.0-5.6) H 08/24/24 08:17
Insulin Pump Settings
IP Diabetes Regimen
08/30/24 08/30/24 08/30/24
12:19 14:08 16:07
Glucose
POC Glucose 107 H 91 109 H
08/30/24 08/30/24 08/30/24
17:56 20:05 22:09
Glucose
POC Glucose 142 H 152 H 132 H
08/31/24 08/31/24 08/31/24
00:42 02:13 03:58
Glucose 85
POC Glucose 74 77
08/31/24 08/31/24 08/31/24
04:02 06:22 08:03
Glucose
POC Glucose 89 84 113 H
08/31/24
09:59
Glucose
POC Glucose 91
Meal type: Dinner
Amount consumed: 70%
Patient Education
[2024-08-31 12:11] LABS: Glucose - Point of Care 175 mg/dl (70-99)
[2024-08-31] MEDS: FARXIGA 10 MG PO (12:15)
--- NOTE | 2024-08-31 12:50 | PTCARENOTE ---
VS stable, attempted to get patient OOB to chair for lunch. Patient able to tolerate sitting on the EOB with no significant change in blood pressure. Upon standing, became less verbally responsive, shaky, placed back into bed, FINANCIAL ANALYST ACCOUNTANT notified.
[2024-08-31] MEDS: FERRLECIT 110 MG IV (13:17)
[2024-08-31] MEDS: NOVOLOG FLEXPEN 2 UNITS SC ×2 (13:35→16:09)
--- NOTE | 2024-08-31 13:55 | PTCARENOTE ---
Patient retaining urine, COOK ICE CREAM notified, manning reinserted - patient tolerated. PO intake encouraged. Report given to receiving nurse.
[2024-08-31 14:16] LABS: Glucose - Point of Care 128 mg/dl (70-99)
[2024-08-31] MEDS: ALBUMIN 5% 250 IV (14:27)
[2024-08-31] MEDS: CORDARONE 103 MG IV (14:38)
--- NOTE | 2024-08-31 15:34 | PTCARENOTE ---
Pt received from previous nurse. AAOx3. Flat affect. Deep breathing, coughing, and incentive spirometer encouraged. Pt witnessed using incentive spirometer to 1,000ml. SaO2 95% on 1L NC. Trialed on room air; SaO2 90%. 1L NC reapplied; use of
incentive spirometry encouraged. Sinus tach with BBBC on awake overnight monitor. HR 90s. Pt s/p orthostasis. New orders for Albumin 12.5 grams in 250ml IV X1 now, Amiodarone 150mg IV X1 now, and Midodrine 5mg PO TID starting now acknowledged and
administered. +1 LE edema, trace anasarca. Insulin gtt continuing per protocol. Harper catheter draining yellow urine.
--- NOTE | 2024-08-31 15:34 | CM ---
Reviewed chart, Met with Mr. Welsh to review discharge plans. He states he is feeling better. He has not been able to ambulate yet due to low blood pressure. Telephone call to [facility] to check on co-pay for Farxiga and Jardiance. His Farxiga
$1.60 a month and Jardiance is $4.60 a month Placed the one month free coupon in his red discharge folder. Will need to see his current functional level to see if he will have any skilled care needs. May benefit from P.T. and O.T.evaluations.
He is planing on going to a friends home with his son staying there if he able. Will need to set-up [facility]. Sent referral to [facility] to see if [facility] can accept the case. Medical work-up in progress. The discharge plan is to go
home with his son and [facility] verses some level of inpatient rehab. if indicated.
[2024-08-31 16:05] LABS: Glucose - Point of Care 186 mg/dl (70-99)
[2024-08-31 17:21] LABS: Glucose - Point of Care 141 mg/dl (70-99)
[2024-08-31] MEDS: GLUCOPHAGE 1000 MG PO (17:49)
[2024-08-31 19:05] LABS: Glucose - Point of Care 136 mg/dl (70-99)
[2024-08-31] MEDS: NSS 500 IV (20:05)
--- NOTE | 2024-08-31 20:30 | PTCARENOTE ---
Patient received resting in bed watching television. Patient A+A+Ox3. No neurological deficits noted. No c/o headache, dizziness or lightheadedness. O2 1L. SpO2 95%. Chest tube dressing changed. Sinus Rhythm with BBC. Heart rate 90's. VVI
insulated - Box on: Rate 60, Output 10, Sensitivity 0.8. Patient with no c/o chest pain, pressure or discomfort. Normoactive bowel sounds. No BM. Positive flatus. No c/o nausea. No vomiting. Harper catheter - Intact and patent - Yellow, clear
urine - Outputs as documented. Sternal incision intact - Surgical adhesive - Open to air. Left groin puncture site intact. Left knee incision intact - Surgical adhesive - Open to air. Generalized trace edema. Positive, palpable pulses. Right
I.Marcus Higgins. Insulin gtt - Glycemic Protocol - Transition to Lantus tonight. Assessment as documented.
[2024-08-31 22:10] LABS: Glucose - Point of Care 126 mg/dl (70-99)
[2024-08-31 22:10] LABS: Glucose - Point of Care 106 mg/dl (70-99)
[2024-08-31] MEDS: LANTUS 0.4 UNITS SC (22:19)
[2024-08-31] MEDS: NEURONTIN 600 MG PO (22:19)
[2024-08-31] MEDS: LIPITOR 80 MG PO (22:19)
[2024-08-31] MEDS: DELTASONE 1 MG PO (22:19)
[2024-08-31] MEDS: PACERONE 400 MG PO (22:20)
[2024-08-31] MEDS: SYNTHROID 100 MCG PO (22:22)
[2024-09-01] VITALS (20 sets, daily range): BP systolic 80–126; BP diastolic 41–65; PULSE 84–96; O2SAT 93; BMI 37.3
--- NOTE | 2024-09-01 | PTCARENOTE ---
Patient sleeping without difficulty. No further changes from previous assessment.
--- NOTE | 2024-09-01 01:45 | W.PN.CT ---
Today's Communication / Plan
-
Plan:
-No major issues overnight
-Was started on Midodrine for postop orthostasis, may be able to discontinue today, bp improving
-Was started on Flomax for acute postop urinary retention, will schedule for HS given postop orthostasis
-Harper was reinserted, consider keeping another day
-BB on hold given postop orthostasis
-Noted to be tachycardic at times, Amiodarone increased to 400 mg TID
-Farxiga started for HF, eventual Entresto when BP tolerates
-Cont. current meds (ASA, Plavix, Lipitor, Amiodarone, Metformin, Farxiga)
-Monitor hyponatremia, AM labs pending, was 133 yesterday
-Consider d/c of cordis
-Consider d/c of temporary PW
-OOB into chair/Ambulate
Assessment / Plan
-
- CAD/ symptomatic AV stenosis - s/p x CABG x 4 (GARZA to LAD, Ao to RSVG to D1 seq to D2, Ao to RSVG to RPDA), aortic valve replacement [#27 mm bioprosthesis], left atrial appendage exclusion [#35 mm clip] on 08/29/[address] Cerda, pod #3
- Intraop SIOBHAN: LVEF was 60-65% pre and post procedure with no new regional wma. There was no prosthetic PVL or AI. Mean gradient across the prosthesis was 6 mmHg. The left atrial appendage was free of any thrombus or debris preoperatively and found
to be totally occlusive with no residual flow postoperatively
- Exertional angina
- Diabetes II
- Multivessel coronary disease
- Moderately severe aortic valve stenosis
- Class 2 obesity with a BMI of 36
- Tobacco abuse, quit 2010
- Family history for cardiovascular disease
- Hypertension
- Hyperlipidemia
- Acute postop blood loss anemia - stable, no transfusion
- Acute postop atelectasis
- Acute postop hypovolemia with subsequent hypervolemia
- Acute postop urinary retention - started Flomax
- Acute postop hyponatremia
- Acute postop hypocalcemia
Discussed patient care with: Cardiology, Nursing, Respiratory Therapy, Pharmacy and Care Team
Subjective
Procedure
s/p x CABG x 4 (GARZA to LAD, Ao to RSVG to D1 seq to D2, Ao to RSVG to RPDA), aortic valve replacement [#27 mm bioprosthesis], left atrial appendage exclusion [#35 mm clip] on 08/29/[address] Cerda
-
Date of Service: September 01, 2024
Pt c/o incisional pain, otherwise feels well
Objective Data
-
PT 17.7 Sec (11.4-14.6) H 08/29/24 13:04
INR 1.40 08/29/24 13:04
APTT 33.3 Sec (23.4-35.0) 08/29/24 13:04
Vital Signs
Vital Signs
Temp Pulse Resp BP Pulse Ox
99.4 F 97 16 115/56 96
09/01/24 00:00 09/01/24 00:30 09/01/24 00:00 09/01/24 00:00 09/01/24 00:00
CT Intake/Output/Weight
08/31/24 08/31/24 09/01/24
06:59 18:59 06:59
Intake Total 359.0 / 1992.6 826.6 / 1132.2 305.6 / 1132.2
Output Total 620 / 1320 785 / 1435 650 / 1435
Balance -261.0 / 672.6 41.6 / -302.8 -344.4 / -302.8
SaO2: 96 (RA)
Physical Exam
-
General: Awake, Oriented and AOx3
Cardiovascular: Regular rate & rhythm, No Rub and No Gallop
Respiratory: Decreased Breath Sounds (at bases, otherwise clear)
Sternum: Stable
Incision: Clean, Dry, Intact and Dressing Intact
Extremities: Other (+trace edema)
Data Reviewed
-
Lab Results: Results Reviewed
Medications: Active Meds Reviewed
Chest X-Ray: Report Reviewed and Image Reviewed
ECG: Report Reviewed and Image Reviewed
--- NOTE | 2024-09-01 05:15 | PTCARENOTE ---
Patient resting in bed without difficulty. Patient A+A+Ox3. No neurological deficits noted. AM lab work collected and sent. Calcium gluconate 4,000mg/250ml IV per PA. Patient with no c/o pain or discomfort. OOB in AM. Assessment/Interventions
as documented.
[2024-09-01 05:27] LABS: Ionized Calcium 1.15 mMOL/L (1.15-1.33)
[2024-09-01] MEDS: CALCIUM GLUCONATE 290 MG IV (05:34)
[2024-09-01] MEDS: TYLENOL PO (05:35)
[2024-09-01 05:41] LABS: Hematocrit 26.1 % (39.0-52.0); Hemoglobin 8.6 g/dL (13.0-18.0); Mean Corpuscular Hgb 29.7 pg (27.0-31.0); Mean Platelet Volume 9.5 fL (7.4-10.4); Platelet Count 131 10^3/uL (130-400); Red Cell Dist. Width 12.7 % (11.5-14.5); White Blood Cell Count 12.7 10^3/uL (4.8-10.8)
[2024-09-01 06:08] LABS: Blood Urea Nitrogen 18 mg/dl (9-20); Calcium 7.7 mg/dl (8.4-10.2); Carbon Dioxide 33 mmol/L (22-30); Chloride 98 mmol/L (98-107); Estimated Creatinine Clearance 110 ml/min; Glucose 83 mg/dl (70-99); Magnesium 2.4 mg/dl (1.6-2.3); Potassium 4.2 mmol/L (3.5-5.1); Sodium 134 mmol/L (135-145); eGFR > 60.00
[2024-09-01 09:05] LABS: Glucose - Point of Care 101 mg/dl (70-99)
[2024-09-01] MEDS: LOPRESSOR 12.5 MG PO (09:05)
[2024-09-01] MEDS: PACERONE 400 MG PO ×3 (09:06→21:59)
[2024-09-01] MEDS: LOW STRENGTH ASPIRIN 81 MG PO (09:06)
[2024-09-01] MEDS: GLUCOPHAGE 1000 MG PO ×2 (09:06→17:44)
[2024-09-01] MEDS: NEURONTIN 300 MG PO ×2 (09:06→12:56)
[2024-09-01] MEDS: SENOKOT-S 1 TABLET PO ×2 (09:06→19:33)
[2024-09-01] MEDS: FARXIGA 10 MG PO (09:06)
[2024-09-01] MEDS: PROTONIX 40 MG PO (09:06)
[2024-09-01] MEDS: PLAVIX 75 MG PO (09:06)
[2024-09-01] MEDS: NOVOLOG FLEXPEN-LOW RESISTANCE SC ×3 (09:07→17:46)
[2024-09-01] MEDS: NOVOLOG FLEXPEN SC ×2 (09:07→13:01)
[2024-09-01] MEDS: LIDOCAINE 4% PATCH 1 PATCH TOPICAL (09:07)
[2024-09-01] MEDS: BACTROBAN 2% OINTMENT 1 APPLIC NASAL ×2 (09:08→19:33)
--- NOTE | 2024-09-01 09:15 | PTCARENOTE ---
Assumed care of patient at 0700. Pt is awake, alert, and oriented, flat affect. Pt remains SR/ST with HR 90's-100. BP 114/60 MAP 76. Epicardial V wire in place, insulated, box set to 60/10/0.8. Pulse oximetry 92% on room air. Pt achieving 750 with
IS, continued use encouraged. Pt tolerating PO diet. Harper catheter in place, Harper care completed. Midsternal incision approximated and PREM. Left leg incision approximated and BLEACHER OPERATOR. Right IJ cordis in place with KVO. Pt currently OOB in chair with
call ro within reach.
--- NOTE | 2024-09-01 11:30 | PTCARENOTE ---
Epicardial V wire pulled by Nely SMALLWOOD NP. Pt tolerated, maintained on bedrest x1hr, BP monitored. No issues noted.
[2024-09-01 13:00] LABS: Glucose - Point of Care 94 mg/dl (70-99)
--- NOTE | 2024-09-01 13:00 | PTCARENOTE ---
Harper catheter d/c'd per order. Orthostatic vitals obtained, orthostatic upon standing. Supine 114/58, Sitting 98/60, Standing 80/52. Pt now sitting comfortably in chair.
--- NOTE | 2024-09-01 13:28 | W.PN.CARDCBS ---
Today's Communication / Plan
-
Continue midodrine for dysautonomia/orthostasis
Impression / Plan
-
Primary Carburetor Expert: Dr. Mishra of [facility]
Assessment:
s/p CABG x4 In situ GARZA to LAD, Ao to RSVG to D1 seq to D2, Ao to RSVG to RPDA, bioprosthetic AVR with (#27 mm Medtronic Avalis Ultra), JUSTEN clip 08/29/24
MV CAD by cath
Mod : s/p #27 mm Medtronic Avalis Ultra
Leukocytosis
Chronic RBBB
DM2 : Chronically on orals: metformin and semaglutide. Now on IV insulin
Rheumatoid Arthritis (his report) on chonic low dose prednisone 1mg daily
HTN
HLD
Obesity
Tobacco use
ECHO 07/10/24: Normal LV systolic function, moderate , mild AR with mean gradient 33 mmHg, EBONY 1.1 cm�
Plan:
-s/p CABG x4 In situ GARZA to LAD, Ao to RSVG to D1 seq to D2, Ao to RSVG to RPDA, bioprosthetic AVR with (#27 mm Medtronic Avalis Ultra), JUSTEN clip 08/29/24
-with some lightheadedness and orthostasis. BP improved with midodrine.
Would continue midodrine given orthostasis
-remains in SR with RBBB on review of tele overnight. continue amiodarone, lopressor on hold due to low BP (Preop was on regimen of Toprol 100 mg nightly, lisinopril 10 mg nightly, Imdur 60 mg nightly).
Progress Note - Carburetor Expert
Subjective
Date of Service: September 01, 2024
He tells me that while he overall feels well he does get dizzy when he stands up.
Objective
Labs:
09/01/24 05:05
09/01/24 05:05
Labs
Hgb 8.6 g/dL (13.0-18.0) L 09/01/24 05:05
Hct 26.1 % (39.0-52.0) L 09/01/24 05:05
Plt Count 131 10^3/uL (130-400) 09/01/24 05:05
PT 17.7 Sec (11.4-14.6) H 08/29/24 13:04
INR 1.40 08/29/24 13:04
APTT 33.3 Sec (23.4-35.0) 08/29/24 13:04
Sodium 134 mmol/L (135-145) L 09/01/24 05:05
Potassium 4.2 mmol/L (3.5-5.1) 09/01/24 05:05
BUN 18 mg/dl (9-20) 09/01/24 05:05
Creatinine 0.8 mg/dL (0.7-1.3) 09/01/24 05:05
Glucose 83 mg/dl (70-99) 09/01/24 05:05
Vital Signs and I&O:
Vital Signs
Temp Pulse Resp BP Pulse Ox
97.7 F 86 16 83/41 95
09/01/24 09:00 09/01/24 12:35 09/01/24 09:00 09/01/24 12:35 09/01/24 11:30
Vital Signs
Temp Pulse Resp BP Pulse Ox
97.7 F 86 16 83/41 95
09/01/24 09:00 09/01/24 12:35 09/01/24 09:00 09/01/24 12:35 09/01/24 11:30
Intake & Output
08/30/24 08/31/24 09/01/24 09/02/24
06:59 06:59 06:59 06:59
Intake Total 823.6 / 823.6 1992.6 / 1992.6 1432.2 / 1442.2 50 / 50
Output Total 1640 / 1640 1320 / 1320 1785 / 1785 865 / 865
Balance -816.4 / -816.4 672.6 / 672.6 -352.8 / -342.8 -815 / -815
Physical Exam
Physical Exam
Sitting in chair, appears comfortable
Sternal incision is clean and dry
Heart is regular normal S1 and S2 no S3 no S4 is grade 1/6 apical systolic murmur no rubs
Lungs decreased breath sounds at both bases somewhat related to reduced inspiratory effort. No rales or rhonchi, no wheezes
Abdomen soft, nondistended, nontender, positive bowel sounds
Extremities with +1 bilateral lower extremity edema
[2024-09-01] MEDS: FERRLECIT 110 MG IV (15:27)
[2024-09-01] MEDS: TYLENOL 1000 MG PO ×2 (15:27→21:59)
--- NOTE | 2024-09-01 17:00 | PTCARENOTE ---
Pt able to void without issue. Remains SR with HR 80's. BP 125/59 MAP 78. Pulse oximetry 93% on room air. Pt with no complaints of pain at this time, now OOB in chair.
[2024-09-01 17:47] LABS: Glucose - Point of Care 126 mg/dl (70-99)
[2024-09-01] MEDS: ROXICODONE 5 MG PO (19:52)
--- NOTE | 2024-09-01 20:00 | PTCARENOTE ---
Received pt from [facility]. pt resting comfortably in chair. pt is AAOx4, complains of 4/10 pain, see MAR. NSR on monitor. VSS. pt assisted from chair to commode and back to bed. pt tolerated transfer well. heart sounds audible, radial and DP pulses
palpable, trace ION, temp epicardial V-wires pulled today by [facility]. lung sounds diminished throughout, crackles auscultated in b/l posterior lower lobes, spo2 96% on RA. + BS x4 quadrants, abdomen soft non tender. pt voiding clear yellow urine
without difficulty. surgical sites maintained. right IJ cordis and PIV maintained. left hand 22g IV removed due to pt discomfort. call ro within reach. will continue to monitor.
[2024-09-01] MEDS: SYNTHROID 100 MCG PO (21:59)
[2024-09-01] MEDS: LANTUS 0.4 UNITS SC (21:59)
[2024-09-01] MEDS: NEURONTIN 600 MG PO (21:59)
[2024-09-01] MEDS: DELTASONE 1 MG PO (21:59)
[2024-09-01] MEDS: LIPITOR 80 MG PO (21:59)
[2024-09-01 22:05] LABS: Glucose - Point of Care 115 mg/dl (70-99)
[2024-09-02] VITALS (19 sets, daily range): BP systolic 92–168; BP diastolic 44–112; PULSE 95–117; O2SAT 94–95; BMI 37.2
--- NOTE | 2024-09-02 | PTCARENOTE ---
Pt assessment unchanged. NSR on monitor. VSS. pt resting comfortably in bed. call ro within reach. will continue to monitor.
--- NOTE | 2024-09-02 03:21 | W.PN.CT ---
Today's Communication / Plan
-
Plan:
-No major issues overnight
-Was started on Midodrine currently on PRN, bp improving
-Was started on Flomax for acute postop urinary retention, Flomax D/c'd as may be contributing to postop orthostasis. Pt voiding post manning removal
-Held BB last night given postop orthostasis and suboptimal BP
-Consider 1u prbc given c/o lightheadedness/dizziness/orthostasis. H/h 8.6/26.4, was 13.7/42.3 preop
-Noted to be tachycardic at times, Amiodarone increased to 400 mg TID
-Farxiga started for HF, eventual Entresto when BP tolerates
-Cont. current meds (ASA, Plavix, Lipitor, Amiodarone, Metformin, Farxiga)
-Hyponatremia has resolved, 134-> 136
-Replete ca++
-F/U 2-view cxr
-Consider d/c of cordis
-OOB into chair/Ambulate
-Home in 1-2 days
Assessment / Plan
-
- CAD/ symptomatic AV stenosis - s/p x CABG x 4 (GARZA to LAD, Ao to RSVG to D1 seq to D2, Ao to RSVG to RPDA), aortic valve replacement [#27 mm bioprosthesis], left atrial appendage exclusion [#35 mm clip] on 08/29/[address] Cerda, pod #4
- Intraop SIOBHAN: LVEF was 60-65% pre and post procedure with no new regional wma. There was no prosthetic PVL or AI. Mean gradient across the prosthesis was 6 mmHg. The left atrial appendage was free of any thrombus or debris preoperatively and found
to be totally occlusive with no residual flow postoperatively
- Exertional angina
- Diabetes II
- Multivessel coronary disease
- Moderately severe aortic valve stenosis
- Class 2 obesity with a BMI of 36
- Tobacco abuse, quit 2010
- Family history for cardiovascular disease
- Hypertension
- Hyperlipidemia
- Acute postop blood loss anemia - stable, no transfusion
- Acute postop atelectasis
- Acute postop hypovolemia with subsequent hypervolemia
- Acute postop urinary retention - started Flomax
- Acute postop hyponatremia
- Acute postop hypocalcemia
Discussed patient care with: Cardiology, Nursing, Respiratory Therapy, Pharmacy and Care Team
Subjective
Procedure
s/p x CABG x 4 (GARZA to LAD, Ao to RSVG to D1 seq to D2, Ao to RSVG to RPDA), aortic valve replacement [#27 mm bioprosthesis], left atrial appendage exclusion [#35 mm clip] on 08/29/[address] Cerda
-
Date of Service: September 02, 2024
Pt c/o mild incisional pain, otherwise fells well
Objective Data
-
PT 17.7 Sec (11.4-14.6) H 08/29/24 13:04
INR 1.40 08/29/24 13:04
APTT 33.3 Sec (23.4-35.0) 08/29/24 13:04
Vital Signs
Vital Signs
Temp Pulse Resp BP Pulse Ox
98.5 F 97 16 125/59 91
09/02/24 00:18 09/01/24 18:15 09/02/24 00:18 09/01/24 15:27 09/02/24 00:18
CT Intake/Output/Weight
09/01/24 09/01/24 09/02/24
06:59 18:59 06:59
Intake Total 605.6 / 1442.2 110 / 110
Output Total 1000 / 1785 1365 / 1565 200 / 1565
Balance -394.4 / -342.8 -1255 / -1455 -200 / -1455
SaO2: 92 (2L NC)
Physical Exam
-
General: Awake, Oriented and AOx3
Cardiovascular: Regular rate & rhythm, No Murmurs, No Rub and No Gallop
Respiratory: Decreased Breath Sounds (at bases, otherwise clear)
Sternum: Stable
Incision: Clean, Dry, Intact and Dressing Intact
Extremities: Other (+trace edema)
Data Reviewed
-
Lab Results: Results Reviewed
Medications: Active Meds Reviewed
Chest X-Ray: Report Reviewed and Image Reviewed
ECG: Report Reviewed and Image Reviewed
--- NOTE | 2024-09-02 04:00 | PTCARENOTE ---
Pt assessment unchanged. NSR on monitor. VSS. labs drawn and sent. CHG bath, new leads, new gown provided. call ro within reach. will continue to monitor.
[2024-09-02 04:46] LABS: Ionized Calcium 1.12 mMOL/L (1.15-1.33)
[2024-09-02 05:36] LABS: Hematocrit 26.4 % (39.0-52.0); Hemoglobin 8.6 g/dL (13.0-18.0); Mean Corp Hgb Conc. 32.6 g/dL (33.0-37.0); Mean Corpuscular Hgb 29.7 pg (27.0-31.0); Mean Platelet Volume 9.6 fL (7.4-10.4); Platelet Count 160 10^3/uL (130-400); Red Cell Dist. Width 13.1 % (11.5-14.5); White Blood Cell Count 11.5 10^3/uL (4.8-10.8)
[2024-09-02 05:51] LABS: Blood Urea Nitrogen 21 mg/dl (9-20); Calcium 7.9 mg/dl (8.4-10.2); Carbon Dioxide 29 mmol/L (22-30); Chloride 99 mmol/L (98-107); Estimated Creatinine Clearance > 125 ml/min; Glucose 101 mg/dl (70-99); Magnesium 2.2 mg/dl (1.6-2.3); Potassium 4.3 mmol/L (3.5-5.1); Sodium 136 mmol/L (135-145); eGFR > 60.00
[2024-09-02] MEDS: TYLENOL 1000 MG PO ×3 (06:34→21:15)
[2024-09-02] MEDS: CALCIUM GLUCONATE 290 MG IV (06:37)
[2024-09-02 07:48] LABS: Glucose - Point of Care 99 mg/dl (70-99)
[2024-09-02] MEDS: NOVOLOG FLEXPEN-LOW RESISTANCE SC ×2 (08:43→16:57)
--- NOTE | 2024-09-02 08:55 | PTCARENOTE ---
Assumed care of patient at 0700. Pt is awake, alert, and oriented. No complaints of pain at this time. Pt remains SR with BBB, HR 90's. BP 92/79 MAP 82. Pulse oximetry 95% on room air. Pt tolerating PO diet. Voiding without issue at this time.
Midsternal incision approximated and FOOD PACKER. Left leg incision approximated and PREM. Pt ambulated with cardiac rehab without issue with rolling walker. Pt now back in chair with call ro within reach.
[2024-09-02] MEDS: FARXIGA 10 MG PO (09:06)
[2024-09-02] MEDS: PROTONIX 40 MG PO (09:06)
[2024-09-02] MEDS: TOPROL XL 12.5 MG PO ×2 (09:06→12:58)
[2024-09-02] MEDS: NEURONTIN 300 MG PO ×2 (09:06→12:58)
[2024-09-02] MEDS: PACERONE 400 MG PO ×3 (09:07→21:15)
[2024-09-02] MEDS: SENOKOT-S PO ×2 (09:07→09:17)
[2024-09-02] MEDS: LIDOCAINE 4% PATCH TOPICAL (09:07)
[2024-09-02] MEDS: LOW STRENGTH ASPIRIN 81 MG PO (09:07)
[2024-09-02] MEDS: GLUCOPHAGE 1000 MG PO ×2 (09:07→18:00)
[2024-09-02] MEDS: PLAVIX 75 MG PO (09:07)
[2024-09-02] MEDS: BACTROBAN 2% OINTMENT 1 APPLIC NASAL (09:08)
--- NOTE | 2024-09-02 09:49 | PTCARENOTE ---
Pt received 1 unit PRBC, no sign of transfusion reaction.
--- NOTE | 2024-09-02 12:00 | PTCARENOTE ---
2 view x-ray completed. Pt noted to be off monitor, call placed to x-ray department. Per x-ray, telemetry box fell on floor rendering box broken. On arrival back to unit pt placed on hardwire, remains SR. Work order placed with [employer].
[2024-09-02] MEDS: NSS IV (12:58)
--- NOTE | 2024-09-02 13:37 | CHAP ---
Visited Mr. Welsh at 11:10. He said he's doing well - very pleased to have walked today. Emotional and spiritual support provided.
[2024-09-02] MEDS: NOVOLOG FLEXPEN-LOW RESISTANCE 1 UNITS SC (15:34)
[2024-09-02 15:35] LABS: Glucose - Point of Care 171 mg/dl (70-99)
--- NOTE | 2024-09-02 16:00 | PTCARENOTE ---
Right IJ cordis d/c'd per order. Pt remains SR with HR 80's. 138/64 MAP 86. Pulse oximetry 95% on room air.
[2024-09-02 16:58] LABS: Glucose - Point of Care 90 mg/dl (70-99)
[2024-09-02] MEDS: TOPROL XL 50 MG PO (19:43)
[2024-09-02] MEDS: SENOKOT-S 1 TABLET PO (19:43)
--- NOTE | 2024-09-02 20:00 | PTCARENOTE ---
Received pt from [facility]. pt resting comfortably in bed. pt is AAOx4, denies pain. NSR on monitor. VSS. heart sounds audible, radial and DP pulses palpable, trace ION. lung sounds diminished throughout, spo2 95% on RA. + BS x4 quadrants, abdomen
soft non tender. pt voiding clear yellow urine without difficulty. surgical sites maintained. right IJ cordis removed today by hi. PIV maintained. call ro within reach. will continue to monitor.
[2024-09-02] MEDS: LANTUS 0.4 UNITS SC (21:14)
[2024-09-02] MEDS: LIPITOR 80 MG PO (21:14)
[2024-09-02 21:15] LABS: Glucose - Point of Care 91 mg/dl (70-99)
[2024-09-02] MEDS: SYNTHROID 100 MCG PO (21:15)
[2024-09-02] MEDS: DELTASONE 1 MG PO (21:15)
[2024-09-02] MEDS: NEURONTIN 600 MG PO (21:15)
[2024-09-02] MEDS: MELATONIN 5 MG PO (21:25)
--- NOTE | 2024-09-02 23:30 | PTCARENOTE ---
Pt assessment unchanged. NSR on monitor VSS. call ro within reach. will continue to monitor.
[2024-09-03] MEDS: ROXICODONE 5 MG PO (02:47)
[2024-09-03 03:14] LABS: Ionized Calcium 1.14 mMOL/L (1.15-1.33)
[2024-09-03 03:19] LABS: Hematocrit 29.9 % (39.0-52.0); Mean Corp Hgb Conc. 33.4 g/dL (33.0-37.0); Mean Corpuscular Hgb 29.3 pg (27.0-31.0); Mean Corpuscular Volume 87.7 fL (80.0-94.0); Platelet Count 178 10^3/uL (130-400); Red Blood Cell Count 3.41 10^6/uL (4.70-6.10); Red Cell Dist. Width 15.3 % (11.5-14.5); White Blood Cell Count 12.2 10^3/uL (4.8-10.8)
[2024-09-03 03:29] LABS: Blood Urea Nitrogen 20 mg/dl (9-20); Calcium 8.3 mg/dl (8.4-10.2); Carbon Dioxide 29 mmol/L (22-30); Chloride 99 mmol/L (98-107); Estimated Creatinine Clearance 110 ml/min; Glucose 87 mg/dl (70-99); Potassium 4.4 mmol/L (3.5-5.1); Sodium 135 mmol/L (135-145); eGFR > 60.00
--- NOTE | 2024-09-03 03:30 | W.PN.CT ---
Today's Communication / Plan
-
Plan:
-No major issues overnight
-Received 1u PRBC yesterday 09/02 for h/h 8.6/26.4, stable @ 06/12.9 today
-No further orthostasis and ambulating without difficulty. Midodrine and Flomax d/c'd
-Tolerating increased Toprol XL to 50 mg BID
-Cont. current meds (ASA, Plavix, Lipitor, Amiodarone, Metformin, Farxiga)
-Farxiga started for HF, eventual Entresto when BP tolerates
-Hyponatremia has resolved, 135
-Replete ca++
-OOB into chair/Ambulate
-Home today
Assessment / Plan
-
- CAD/ symptomatic AV stenosis - s/p x CABG x 4 (GARZA to LAD, Ao to RSVG to D1 seq to D2, Ao to RSVG to RPDA), aortic valve replacement [#27 mm bioprosthesis], left atrial appendage exclusion [#35 mm clip] on 08/29/[address] Cerda, pod #5
- Intraop SIOBHAN: LVEF was 60-65% pre and post procedure with no new regional wma. There was no prosthetic PVL or AI. Mean gradient across the prosthesis was 6 mmHg. The left atrial appendage was free of any thrombus or debris preoperatively and found
to be totally occlusive with no residual flow postoperatively
- Exertional angina
- Diabetes II
- Multivessel coronary disease
- Moderately severe aortic valve stenosis
- Class 2 obesity with a BMI of 36
- Tobacco abuse, quit 2010
- Family history for cardiovascular disease
- Hypertension
- Hyperlipidemia
- Acute postop blood loss anemia (transfused 1u PRBC)
- Acute postop atelectasis
- Acute postop hypovolemia with subsequent hypervolemia
- Acute postop urinary retention - started Flomax
- Acute postop hyponatremia
- Acute postop hypocalcemia
Discussed patient care with: Cardiology, Nursing, Respiratory Therapy, Pharmacy and Care Team
Subjective
Procedure
s/p x CABG x 4 (GARZA to LAD, Ao to RSVG to D1 seq to D2, Ao to RSVG to RPDA), aortic valve replacement [#27 mm bioprosthesis], left atrial appendage exclusion [#35 mm clip] on 08/29/[address] Cerda
-
Date of Service: September 03, 2024
Pt c/o mild incisional pain, otherwise feels well. Ambulating halls without difficulty, denies lightheadedness/dizziness
Objective Data
-
Lab Results
09/03/24 02:59
09/03/24 02:59
PT 17.7 Sec (11.4-14.6) H 08/29/24 13:04
INR 1.40 08/29/24 13:04
APTT 33.3 Sec (23.4-35.0) 08/29/24 13:04
Vital Signs
Vital Signs
Temp Pulse Resp BP Pulse Ox
98.4 F 90 18 149/112 96
09/02/24 23:30 09/02/24 19:38 09/02/24 23:30 09/02/24 19:38 09/02/24 23:30
CT Intake/Output/Weight
09/02/24 09/02/24 09/03/24
06:59 18:59 06:59
Intake Total 250 / 250
Output Total 1075 / 2440 1200 / 1200
Balance -1075 / -2330 -950 / -950
SaO2: 96 (RA)
Physical Exam
-
General: Awake, Oriented and AOx3
Cardiovascular: Regular rate & rhythm, No Murmurs, No Rub and No Gallop
Respiratory: Decreased Breath Sounds (at bases, otherwise clear)
Sternum: Stable
Incision: Clean, Dry, Intact and Dressing Intact
Extremities: No Edema
Data Reviewed
-
Lab Results: Results Reviewed
Medications: Active Meds Reviewed
Chest X-Ray: Report Reviewed and Image Reviewed
ECG: Report Reviewed and Image Reviewed
[2024-09-03 03:32] VITALS: BP 106/65
[2024-09-03] MEDS: CALCIUM GLUCONATE 130 MG IV (03:57)
--- NOTE | 2024-09-03 04:00 | PTCARENOTE ---
pt assessment unchanged. marvel given for pain. labs drawn and sent.
[2024-09-03] MEDS: TYLENOL 1000 MG PO (05:50)
[2024-09-03 05:58] VITALS: BMI 37.3
[2024-09-03] MEDS: NOVOLOG FLEXPEN-LOW RESISTANCE SC (07:00)
--- NOTE | 2024-09-03 07:54 | PN.DE.MGMTRT ---
Insulin Management
- -
09/03/2024: Diabetes Management F/U:
Patient admitted 08/29 to OR for CABG x 4. MH diabetes 20 years, HTN, HLD, hernia, seasonal allergies. Prior to admission was taking 41 units Lantus @ hs with metformin 1000 BID and semaglutide once weekly. A1C is 6.4%, cr .8, eGFR > 60.
Patient is awake alert and oriented, sitting up in chair, offers no complaints, able to discuss diabetes plan.
POD# 5. Transitioned off glycemic protocol to SQ insulin on 08/31, was started on Farxiga 10 mg daily, 1000 mg metformin, Lantus 40 units and low corrective.
09/02 Premeal glucose stable and in range, 90 to 171, HS glucose 91 and FBG
Will make no changes to current regimen: Lantus 40 units @ HS, Metformin 1000mg BID and Farxiga 10mg daily with low corrective insulin
Patient states he has glucose monitor with plenty of supplies at home.
Discussed with Nurse and CV team. Pt instructed to resume Ozempic weekly upon discharge.
Diabetes History
- -
Type of Diabetes: 2 requiring insulin
Pre-Admission Diabetes Regimen
09/03/24
02:59
Creatinine 0.8
Lab Results
Hemoglobin A1c 6.4 % (4.0-5.6) H 08/24/24 08:17
Insulin Pump Settings
IP Diabetes Regimen
09/02/24 09/02/24 09/02/24
15:34 16:56 21:13
Glucose
POC Glucose 171 H 90 91
09/03/24
02:59
Glucose 87
POC Glucose
Meal type: Dinner
Meal type: Lunch
Meal type: Breakfast
Amount consumed: 100%
Amount consumed: 100%
Amount consumed: 100%
Patient Education
[2024-09-03] MEDS: LIDOCAINE 4% PATCH TOPICAL (08:40)
[2024-09-03] MEDS: GLUCOPHAGE 1000 MG PO (08:52)
[2024-09-03] MEDS: SENOKOT-S 1 TABLET PO (08:52)
[2024-09-03] MEDS: PROTONIX 40 MG PO (08:52)
[2024-09-03] MEDS: NEURONTIN 300 MG PO (08:52)
[2024-09-03] MEDS: FARXIGA 10 MG PO (08:52)
[2024-09-03 08:53] VITALS: BP 121/64
[2024-09-03] MEDS: PACERONE 400 MG PO (08:53)
[2024-09-03] MEDS: PLAVIX 75 MG PO (08:53)
[2024-09-03] MEDS: LOW STRENGTH ASPIRIN 81 MG PO (08:53)
[2024-09-03] MEDS: TOPROL XL 50 MG PO (08:54)
[2024-09-03 10:11] VITALS: BP 119/54
--- NOTE | 2024-09-03 10:12 | W.DCSUMMARY ---
Discharge Summary
Discharge Data
Date of Admission: 08/29/24
Date of Discharge: 09/03/24
Total time spent discharging patient (in min): 45
-
Pending Results: No
Hospital Course
Primary care physician:
Dr. Mildred Houston
Outpatient senior user experience architect:
Dr. Rafael Moe
Inpatient consultants:
DM management medical transcriber, DCA, Rivet Catcher
Procedures:
1. Coronary artery bypass grafting x 4 (In situ GARZA to LAD, Ao to RSVG to D1 seq to D2, Ao to RSVG to RPDA), Surgical aortic valve replacement [27 mm bioprosthesis] , Left atrial appendage exclusion [35 mm clip]
Primary Diagnosis:
1. Aortic valve stenosis with multivessel coronary artery disease and exertional angina
Secondary Diagnoses:
1. Diabetes
2. post-operative orthostatic hypotension
3. post-operative anemia requiring blood transfusion
4. Acute post-op urinary retention
5. Morbidly obese with a BMI of 36
6. Tobacco abuse
7. Family history for cardiovascular disease
8. Hypertension
9. Hyperlipidemia
HPI: 68-year-old male with past medical history listed above seen in the office by Dr. Cerda presented electively on 08/29 for CABG.
Hospital course: Patient presented electively on 08/29 for coronary artery bypass with Dr. Cerda. Postoperatively he returned to the CVICU on Precedex, insulin, and +/- Cardene/Levophed. Patient's Precedex was weaned off and patient was extubated by
1640 overnight Levophed was weaned off. On 08/30 postoperative day 1 patient was given 250 mL of normal saline however he continued to have positive orthostatic hypotension and was given 5 mg of midodrine and started on low-dose beta-sydni for
tachycardia. He was straight cathed for urinary retention. On 08/31 postoperative day 2 patient continued to require straight cathing for urinary retention he was started on Flomax and a Harper was reinserted. Beta-blockers were put on hold and
patient was started on standing midodrine for orthostatic hypotension. Due to patient's tachycardia and inability to give Lopressor he was given a 150 mg bolus of amiodarone along with 1 5% albumin. On 09/01 postoperative day 3 patient had improved
blood pressures so his midodrine was put on hold he was also started on a low-dose beta-sydni which he tolerated well. Patient's Harper catheter was discontinued for another voiding trial and patient was able to void. Patient's chest tubes and
wires were discontinued. On 09/02 postoperative day 4 patient was found to be anemic and was given 1 unit of packed red blood cells and beta-blockers were again increased due to tachycardia. Patient ambulated well patient's two-view chest x-ray
remained stable. On 09/03 postoperative day 5 patient had no further episodes of hypotension and is tolerating his metoprolol XL at 50 mg twice daily. He was deemed stable for discharge home.
Home medication changes:
See below
Discharge Plan
-
Patient Disposition: Home (Routine Discharge)
Discharge Diagnosis/Procedures: AVR/CABG
Condition: Good
Diet: Low Fat, Low Sodium and Diabetic, Carb Controlled
Activity: No strenuous activity
Driving Restrictions: Not until seen by your Dr
Bathing Restrictions: OK to Shower
Other Services: Cardiac Rehab
Specialty Instructions: Weigh Daily- Call MD for wt gain/loss 3 lbs overnight/5 lbs in 1 week
Activity Restrictions/Additional Instructions:
Brochures for Cardiac Rehab at either [facility] or [facility] will be given at the time of d/c. Please call them to schedule an appointment for about 5 weeks after your surgery.
ACTIVITY:
-No strenuous activity: no heavy lifting, pushing, pulling anything over 15 pounds for one month
-continue to use stairs as tolerated
DRIVING RESTRICTIONS:
-No driving for one month or until approved by your surgeon
WOUND CARE:
-Shower daily. Use soap & water.
-No lotions, creams or powders on incision area.
DIET:
-continue a low fat/low cholesterol diet.
-IF you are diabetic, continue carb controlled diet.
CARDIAC REHAB:
-Please make appointment to start in 5-6 weeks with your local hospital program. (See Cardiac Rehabilitation Discharge Booklet).
SPECIALTY INSTRUCTIONS:
-Weigh yourself daily. Call your physician for any weight gain/loss of 3 lbs overnight or 5 lbs in one week.
-REPORT any clicking noise or uneven appearance of your sternum to your surgeon immediately.
-If you smoke, you are instructed to quit. The [place] smoking hotline phone number is [phone]
Referrals:
[facility] [Outside]
Mildred Houston CRNP [Family Provider] - in four to six weeks (Please make an appointment in four to six weeks. )
Rafael Mishra MD [Non-Admitting Privileges] - 10/12/24 11:30 am
()
Jose G Galvan MD [Active] - in four to six weeks
(Dr. Galvan or nurse practitioner
Obstructive sleep apnea evaluation)
Roberto Carlos Cerda MD [Active] - 10/01/24 2:00 pm
Prescriptions:
New
cyclobenzaprine 10 mg Tablet
5 mg PO Q8HPRN PRN (Reason: muscle spasm) Qty: 30 0RF
clopidogrel 75 mg Tablet
75 mg PO DAILY Qty: 30 0RF
metoprolol succinate 50 mg Tablet Extended Release 24 Hr
50 mg PO BID Qty: 60 2RF
acetaminophen 325 mg Tablet
650 mg PO Q4HPRN PRN (Reason: mild pain,headache,temp >101F ) Qty: 0 0RF
oxycodone 5 mg Tablet
5 mg PO Q4HPRN PRN (Reason: severe pain) Qty: 7 0RF
dapagliflozin propanediol 10 mg Tablet
10 mg PO DAILY Qty: 30 1RF
pantoprazole 40 mg Tablet,Delayed Release (Dr/Ec)
40 mg PO DAILY Qty: 30 0RF
Continued
atorvastatin 80 mg Tablet
80 mg PO HS
gabapentin 600 mg Tablet
600 mg PO HS
prednisone 1 mg Tablet
1 mg PO HS
metformin 1,000 mg Tablet
1,000 mg PO BID
gabapentin 300 mg Capsule
300 mg PO BID@0800,1200
insulin glargine [Lantus Solostar U-100 Insulin] 100 unit/mL (3 mL) Insulin Pen
41 unit SC HS
levothyroxine 100 mcg Capsule
100 mcg PO HS
nitroglycerin [Nitrostat] 0.4 mg Tablet, Sublingual
0.4 mg SUBLINGUAL Q5M PRN (Reason: chest pain)
aspirin 81 mg Tablet,Chewable
81 mg PO DAILY
albuterol sulfate 90 mcg/actuation Hfa Aerosol Inhaler
2 puff INHALATION Q6H PRN (Reason: dyspnea/wheezing)
Held
semaglutide 2 mg/dose (8 mg/3 mL) Pen Injector
1 mg SC QWEEK
Hold Instructions: Resume on 09/17/24.
Discontinued
isosorbide mononitrate 60 mg Tablet Extended Release 24 Hr
60 mg PO HS
lisinopril 10 mg Tablet
10 mg PO HS
metoprolol succinate 100 mg Tablet Extended Release 24 Hr
100 mg PO HS
Patient Comments:
Pt states he cannot find this pill in his medication box and does not think he took this medication.
Discharge Orders:
Discharge Patient (As Directed); Ordered 09/03/24
Ordered By: Sussy Junior
Discharge Date and Time
Print Language: BELARUSIAN
[2024-09-03 10:35] VITALS: BP 157/76
[2024-09-03 10:40] VITALS: BP 119/54; BP 157/76; PULSE 74; O2SAT 96
--- NOTE | 2024-09-03 13:06 | PTCARENOTE ---
All discharge instructions gone over with son and patient at bedside. removed iv and tele monitor. showered. Left with son via wheelchair.
== END 2024-09-03 12:00 | disposition home health service (06) | DRG 220 ==
LOC: CVICU 04:40
PROVIDERS: Anesthesiology; Nurse Practitioner; ADMITTING PHYSICIAN Thoracic Surgery (Cardiothoracic Vascular Surgery); CONSULT PHYSICIAN Internal Medicine Critical Care Medicine; FAMILY PHYSICIAN Nurse Practitioner
PROC: 02RF08Z Replacement of Aortic Valve with Zooplastic Tissue, Open Approach (ICD-10-PCS; 2024-08-29)
PROC: 5A1221Z Performance of Cardiac Output, Continuous (ICD-10-PCS; 2024-08-29)
PROC: 021209W Bypass Coronary Artery, Three Arteries from Aorta with Autologous Venous Tissue, Open Approach (ICD-10-PCS; 2024-08-29)
PROC: 06BP4ZZ Excision of Right Saphenous Vein, Percutaneous Endoscopic Approach (ICD-10-PCS; 2024-08-29)
PROC: 02L70CK Occlusion of Left Atrial Appendage with Extraluminal Device, Open Approach (ICD-10-PCS; 2024-08-29)
PROC: 02100Z9 Bypass Coronary Artery, One Artery from Left Internal Mammary, Open Approach (ICD-10-PCS; 2024-08-29)
PROC: B24BZZ4 Ultrasonography of Heart with Aorta, Transesophageal (ICD-10-PCS; 2024-08-29)
PROC: 30233N1 Transfusion of Nonautologous Red Blood Cells into Peripheral Vein, Percutaneous Approach (ICD-10-PCS; 2024-09-02)
DX: I35.0 Nonrheumatic aortic (valve) stenosis (principal); D62 Acute posthemorrhagic anemia; J98.11 Atelectasis; E87.1 Hypo-osmolality and hyponatremia; I25.118 Atherosclerotic heart disease of native coronary artery with other forms of angina pectoris; E11.9 Type 2 diabetes mellitus without complications; E66.01 Morbid (severe) obesity due to excess calories; I10 Essential (primary) hypertension; E78.5 Hyperlipidemia, unspecified; E03.9 Hypothyroidism, unspecified; I95.1 Orthostatic hypotension; R33.9 Retention of urine, unspecified; I45.10 Unspecified right bundle-branch block; E86.1 Hypovolemia; E87.70 Fluid overload, unspecified; M06.9 Rheumatoid arthritis, unspecified; E83.51 Hypocalcemia; Z68.36 Body mass index [BMI] 36.0-36.9, adult; Z79.4 Long term (current) use of insulin; Z79.52 Long term (current) use of systemic steroids; Z79.82 Long term (current) use of aspirin; Z79.899 Other long term (current) drug therapy; Z82.49 Family history of ischemic heart disease and other diseases of the circulatory system; Z87.891 Personal history of nicotine dependence
CPT/HCPCS: 88305; 88311; 36415; 71045; 71046; 80048; 80053; 81003; 82248; 82330; 82565; 82805; 82810; 82947; 82962; 83036; 83735; 84132; 84302; 84520; 85014; 85018; 85025; 85027; 85049; 85610; 85730; 86803; 86850; 86900; 86901; 86920; 87070; 93005; 93312; 93320; 93325; 93880; 94002; 97116; 97163; 97167; 97530; 97535; J2916; P9016; P9045